=== PATIENT | female | born 1930 | race Caucasian/White ===

== ENCOUNTER → 2016-04-28 | Outpatient (CLI) | payer MEDICARE, BC ==
[2016-04-28 10:07] LABS: APPEARANCE,URINE SLIGHTLY-CLOUDY; BILIRUBIN,URINE NEGATIVE (NEGATIVE); GLUCOSE, URINE NEGATIVE (NEGATIVE); KETONES,URINE NEGATIVE (NEGATIVE); LEUKOCYTE ESTERASE,URINE LARGE (NEGATIVE); NITRITE,URINE NEGATIVE (NEGATIVE); PROTEIN,URINE NEGATIVE (NEGATIVE); URINE SPECIFIC GRAVITY 1.012; UROBILINOGEN,URINE NEGATIVE mg/dL (<2.0)
[2016-04-28 10:15] LABS: ABSOLUTE BASOPHILS # (AUTO) 0.1 10^3/uL (0.0-0.2); ABSOLUTE EOSINOPHILS # (AUTO) 0.3 10^3/uL (0.0-0.6); ABSOLUTE LYMPHOCYTES (AUTO) 1.7 10^3/uL (0.5-4.7); ABSOLUTE MONOCYTES (AUTO) 0.5 10^3/uL (0.1-1.4); ABSOLUTE NEUT (AUTO) 2.4 10^3/uL (1.7-8.2); BASOPHILS % (AUTO) 1.3 % (0-2); EOSINOPHILS % (AUTO) 5.2 % (0-6); HEMATOCRIT 39.3 % (36.0-47.0); HEMOGLOBIN 13.1 g/dL (12.0-15.5); LYMPHOCYTES % (AUTO) 33.7 % (13-45); MEAN CORPUSCULAR HGB CONC 33.3 g/dL (32.0-36.0); MEAN CORPUSCULAR VOLUME 87 fl (80-97); MONOCYTES % (AUTO) 10.4 % (3-13); RED CELL DISTRIBUTION WIDTH 13.8 % (11.5-14.0); SEGMENTED NEUTROPHILS % (AUTO) 49.4 % (42-78); WHITE BLOOD COUNT 4.9 10^3/uL (4.0-10.5)
[2016-04-28 10:40] LABS: ALANINE AMINOTRANSFERASE 30 U/L (9-52); ALKALINE PHOSPHATASE 65 U/L (38-126); ANION GAP 11 (5-19); ASPARTATE AMINO TRANSFERASE 26 U/L (14-36); BILIRUBIN,DIRECT 0.3 mg/dL (0.0-0.4); BILIRUBIN,TOTAL 1.1 mg/dL (0.2-1.3); BLOOD UREA NITROGEN 15 mg/dL (7-20); CARBON DIOXIDE 31 mmol/L (22-30); CHLORIDE 103 mmol/L (98-107); CHOLESTEROL 168.23 mg/dL (0-200); CREATININE RESULT 0.64 mg/dL (0.52-1.25); Direct HDL 57 mg/dL (>40); GLUCOSE 87 mg/dL (75-110); POTASSIUM 4.2 mmol/L (3.6-5.0); SODIUM 144.8 mmol/L (137-145); TOTAL PROTEIN 7.6 g/dL (6.3-8.2); TRIGLYCERIDES 134 mg/dL (<150); URIC ACID 3.9 mg/dL (2.5-7.5)
[2016-04-28 10:51] LABS: DIRECT LDL 78 mg/dL (<100)
[2016-04-28 11:06] LABS: THYROID STIMULATING HORMONE 1.35 uIU/mL (0.47-4.68)
== END ==
LOC: OD 09:11
PROVIDERS: ATTEND Internal Medicine
DX: I10 Essential (primary) hypertension (principal)
CPT/HCPCS: 36415; 80053; 80061; 81001; 84439; 84443; 84550; 85025

== ENCOUNTER → 2017-03-09 | Outpatient (CLI) | payer MEDICARE, BC ==
[~2017-03-09] MED LIST: DIAZEPAM 5 MG TABLET ONE
--- NOTE | 2017-03-09 12:47 | RADIOLOGY REPORT (SQ) ---
EXAM DESCRIPTION: MRI LUMBAR SPINE WITHOUT COMPLETED DATE/TIME: 03/09/2017 12:28 pm REASON FOR STUDY: RADICULOPATHY, LUMBAR REGION M54.16 RADICULOPATHY, LUMBAR REGION M46.1 SACROILII TIS, NOT ELSEWHERE CLASSIFIED COMPARISON: None. TECHNIQUE: Sagittal and Axial imaging includes T1, T2, STIR and gradient echo sequences. Coronal T2/ HASTE imaging. LIMITATIONS: Motion. FINDINGS: VISUALIZED UPPER ABDOMEN: Limited evaluation. No acute or suspicious findings suggested. SEGMENTATION: No transitional anatomy. The lowest well-developed disc space is labeled L5-S1. ALIGNMENT: Marked convex left scoliosis. Grade 1 spondylolisthesis L3-4 and L4-5. VERTEBRAE: Intact. BONE MARROW: Reactive edema L3-4 endplates. DISC SIGNAL: Desiccation multiple levels. POSTERIOR ELEMENTS: Intact. HARDWARE: None in the spine. CORD AND CONUS: Normal in size and signal intensity. Conus at the appropriate level. SOFT TISSUES: No aortic aneurysm seen. No bulky retroperitoneal adenopathy or mass. No paraspinal mas s or fluid. L1-L2: Mild spinal stenosis due to disc osteophyte complex. Right lateral recess stenosis. Moderate neural foraminal narrowing bilaterally. L2-L3: Moderate spinal stenosis due to disc osteophyte complex and facet arthropathy. Lateral recess stenosis. Moderate neural foraminal narrowing bilaterally. L3-L4: Severe spinal stenosis. Lateral recess stenosis. Moderate left and severe right neural melecio inal narrowing. L4-L5: Moderate spinal stenosis. Lateral recess stenosis. Moderate neural foraminal narrowing bilat erally. L5-S1: Disc bulge and facet arthropathy. No significant spinal stenosis. Moderate left and mild rig ht neural foraminal narrowing. LOWER THORACIC: Incompletely imaged. No stenosis seen. SACRUM: Visualized upper sacrum intact. OTHER: No other significant findings. IMPRESSION: Spondylosis, facet arthropathy and malalignment. Spinal stenosis at multiple levels, mo st severe at L3-4. TECHNICAL DOCUMENTATION: JOB ID: [id number] [employer]- All Rights Reserved
--- NOTE | 2017-03-09 13:12 | RADIOLOGY REPORT (SQ) ---
EXAM DESCRIPTION: MRI PELVIS WITHOUT COMPLETED DATE/TIME: 03/09/2017 12:28 pm REASON FOR STUDY: SACROILIITIS M54.16 RADICULOPATHY, LUMBAR REGION M46.1 SACROILIITIS, NOT ELSEWHE RE CLASSIFIED COMPARISON: None. TECHNIQUE: T1, inversion recovery weighted sequences through the sacrum and coccyx without intraveno us contrast. Images saved to PACs. FINDINGS: There is no evidence of insufficiency fracture. No inflammatory changes in the SI joints. No presacral mass. See separate report for findings in the lumbar spine. IMPRESSION: No acute findings. TECHNICAL DOCUMENTATION: JOB ID: [id number] [email or web address]- All Rights Reserved
== END ==
LOC: RAD 03-03 10:53
PROVIDERS: ATTEND Internal Medicine
DX: M54.16 Radiculopathy, lumbar region (principal); M46.1 Sacroiliitis, not elsewhere classified
CPT/HCPCS: 72148; 72195; A9270

== ENCOUNTER → 2017-04-16 | Outpatient (CLI) | payer MEDICARE, BC ==
--- NOTE | 2017-04-16 10:49 | WOMENS IMAGING REPORT ---
EXAM DESCRIPTION: BONE DENSITY HIP/SPINE COMPLETED DATE/TIME: 04/16/2017 10:33 am REASON FOR STUDY: DISORDER OF BONE; M89.9 M81.0 AGE-RELATED OSTEOPOROSIS W/O CURRENT PATHOLOGICAL F RAC M89.9 DISORDER OF BONE, UNSPECIFIED COMPARISON: None. TECHNIQUE: Dual-Energy X-ray Absorptiometry (DEXA) of the AP Spine and Hip. LIMITATIONS: None. FINDINGS: LUMBAR SPINE: The bone mineral density (BMD) measured from L1-L4 in the AP projection correlates with a T-score of -0.9, which is normal as defined by the World Health Organization. HIP: The bone mineral density (BMD) measured in the left hip correlates with a T-score of -0.8, which is n ormal as defined by the World Health Organization. IMPRESSION: 1. LUMBAR SPINE: NORMAL. 2. HIP: NORMAL. COMMENT: The World Health Organization defines low BMD as follows: T-score: Normal: Greater than -1.0 Osteopenia: Between -1.0 and -2.5 Osteoporosis: Less than -2.5 without fractures Established osteoporosis: Less than -2.5 with fractures In general, you may wish to consider: Diagnosis Treatment Follow-up DEXA Normal BMD Prevention 2-3 years Osteopenia Prevention/Therapy 1-2 years Osteoporosis Therapy Yearly TECHNICAL DOCUMENTATION: JOB ID: [id number] 1910[employer]- All Rights Reserved Reading location - IP/workstation name: [facility][email or web address]
--- NOTE | 2017-04-16 13:00 | RADIOLOGY REPORT (SQ) ---
EXAM DESCRIPTION: L SPINE W/FLEX/EXT COMPLETED DATE/TIME: 04/16/2017 11:47 am REASON FOR STUDY: M47.26 OTHER SPONDYLOSIS WITH RADICULOPATHY, LUMBAR REGION M81.0 AGE-RELATED OSTE OPOROSIS W/O CURRENT PATHOLOGICAL FRAC M89.9 DISORDER OF BONE, UNSPECIFIED M47.26 OTHER SPONDYLOSIS WITH RADICULOPATHY, LUMBAR REGION COMPARISON: None. NUMBER OF VIEWS: Seven views. TECHNIQUE: AP, lateral, obliques, flexion, extension, and sacral radiographic images acquired. LIMITATIONS: None. FINDINGS: MINERALIZATION: Normal. SEGMENTATION: Normal. No transitional anatomy. ALIGNMENT: Scoliosis, convex to the left. Grade 1 anterolisthesis of L 3 on L4 and L 4 on L5. FLEXION/EXTENSION: No instability. VERTEBRAE: Maintained height. No fracture or worrisome bone lesion. DISCS: Multilevel disc space narrowing with osteophytes. POSTERIOR ELEMENTS: Pedicles and facets are intact. Facet arthropathy in the lower lumbar spine. No pars defect or posterior arch defects. HARDWARE: None in the spine. PARASPINAL SOFT TISSUES: Normal. PELVIS: Intact as visualized. No fractures or worrisome bone lesions. SI joints intact. OTHER: No other significant finding. IMPRESSION: MULTILEVEL CHRONIC DEGENERATIVE CHANGES. SCOLIOSIS. GRADE 1 ANTEROLISTHESIS OF L 3 ON L4 AND L4 ON L5. NO INSTABILITY ON FLEXION/EXTENSION. TECHNICAL DOCUMENTATION: JOB ID: [id number]- All Rights Reserved Reading location - IP/workstation name: [email or web address]
== END ==
LOC: WI 10:22
PROVIDERS: ATTEND Neurological Surgery
DX: M47.26 Other spondylosis with radiculopathy, lumbar region (principal); M89.9 Disorder of bone, unspecified
CPT/HCPCS: 72114; 77080

== ENCOUNTER → 2017-06-01 | Outpatient (CLI) | payer MEDICARE, BC ==
--- NOTE | 2017-06-01 12:35 | RADIOLOGY REPORT (SQ) ---
EXAM DESCRIPTION: HIP LEFT AP/LATERAL COMPLETED DATE/TIME: 06/01/2017 11:26 am REASON FOR STUDY: M25.552 PAIN IN LEFT HIP M25.552 PAIN IN LEFT HIP COMPARISON: None. NUMBER OF VIEWS: Two views. TECHNIQUE: AP pelvis and additional frog-leg view of the left hip. LIMITATIONS: None. FINDINGS: There is joint space narrowing with near bone on bone contact in the left hip. Remodeling of the femoral head. No evidence of AVN. SI joints are normal. Lower lumbar scoliosis and spondyl osis. IMPRESSION: Advanced osteoarthritis. TECHNICAL DOCUMENTATION: JOB ID: [id number] [employer]- All Rights Reserved Reading location - IP/workstation name: [email or web address]
== END ==
LOC: RAD 10:50
PROVIDERS: ATTEND Physician Assistant
DX: M25.552 Pain in left hip (principal); M16.12 Unilateral primary osteoarthritis, left hip

== ENCOUNTER → 2017-06-17 | Outpatient (CLI) | payer MEDICARE, BC ==
--- NOTE | 2017-06-17 16:07 | RADIOLOGY REPORT (SQ) ---
EXAM DESCRIPTION: SACROILIAC JOINTS 3 OR MORE COMPLETED DATE/TIME: 06/17/2017 3:54 pm REASON FOR STUDY: M53.3 SACROCOCCYGEAL DISORDERS, NOT ELSEWHERE CLASSIFIED M53.3 SACROCOCCYGEAL DIS ORDERS, NOT ELSEWHERE CLASSIFIED COMPARISON: None. NUMBER OF VIEWS: Three views. TECHNIQUE: AP and oblique views of the sacroiliac joints. LIMITATIONS: None. FINDINGS: MINERALIZATION: Osteopenia. BONES: No acute fracture or dislocation. No worrisome bone lesions. Lower lumbar spondylosis and fac et arthropathy. JOINTS: Mild sclerosis left SI joint. No erosions. SOFT TISSUES: No soft tissue swelling. No radio-opaque foreign body. OTHER: No other significant finding. IMPRESSION: Mild left SI joint arthropathy. TECHNICAL DOCUMENTATION: JOB ID: [id number]- All Rights Reserved Reading location - IP/workstation name: [facility]-RR
== END ==
LOC: RAD 15:28
PROVIDERS: ATTEND Pain Medicine Pain Medicine
DX: M53.3 Sacrococcygeal disorders, not elsewhere classified (principal)
CPT/HCPCS: 72202

== ENCOUNTER → 2018-01-08 | Outpatient (CLI) | payer MEDICARE, BC ==
--- NOTE | 2018-01-08 09:54 | RADIOLOGY REPORT (SQ) ---
EXAM DESCRIPTION: CHEST PA/LATERAL COMPLETED DATE/TIME: 01/08/2018 9:45 am REASON FOR STUDY: PRE-OP COMPARISON: None. EXAM PARAMETERS: NUMBER OF VIEWS: two views TECHNIQUE: Digital Frontal and Lateral radiographic views of the chest acquired. RADIATION DOSE: NA LIMITATIONS: none FINDINGS: LUNGS AND PLEURA: Interstitial markings are prominent bilaterally most marked in the lung bases. This most likely represents chronic interstitial lung disease. No focal consolidations or ef fusions. No pneumothorax. MEDIASTINUM AND HILAR STRUCTURES: No masses or contour abnormalities. HEART AND VASCULAR STRUCTURES: Heart normal size. No evidence for failure. BONES: No acute findings. HARDWARE: None in the chest. OTHER: No other significant finding. IMPRESSION: Probable mild chronic interstitial lung disease. No acute findings. TECHNICAL DOCUMENTATION: JOB ID: [id number] [employer]- All Rights Reserved Reading location - IP/workstation name: [email or web address]
[2018-01-08 09:59] LABS: APPEARANCE,URINE SLIGHTLY-CLOUDY; BILIRUBIN,URINE NEGATIVE (NEGATIVE); COLOR,URINE YELLOW; GLUCOSE, URINE NEGATIVE (NEGATIVE); KETONES,URINE NEGATIVE (NEGATIVE); LEUKOCYTE ESTERASE,URINE NEGATIVE (NEGATIVE); NITRITE,URINE NEGATIVE (NEGATIVE); PROTEIN,URINE NEGATIVE (NEGATIVE); URINE SPECIFIC GRAVITY 1.015; UROBILINOGEN,URINE NEGATIVE mg/dL (<2.0)
[2018-01-08 10:05] LABS: ABSOLUTE EOSINOPHILS # (AUTO) 0.3 10^3/uL (0.0-0.6); ABSOLUTE LYMPHOCYTES (AUTO) 1.6 10^3/uL (0.5-4.7); ABSOLUTE MONOCYTES (AUTO) 0.4 10^3/uL (0.1-1.4); ABSOLUTE NEUT (AUTO) 2.1 10^3/uL (1.7-8.2); BASOPHILS % (AUTO) 0.8 % (0-2); EOSINOPHILS % (AUTO) 5.8 % (0-6); HEMATOCRIT 37.4 % (36.0-47.0); HEMOGLOBIN 12.5 g/dL (12.0-15.5); MEAN CORPUSCULAR HEMOGLOBIN 29.2 pg (27.0-33.4); MEAN CORPUSCULAR HGB CONC 33.4 g/dL (32.0-36.0); MEAN CORPUSCULAR VOLUME 87 fl (80-97); MONOCYTES % (AUTO) 9.8 % (3-13); PLATELET COUNT 250 10^3/uL (150-450); RED BLOOD COUNT 4.29 10^6/uL (3.72-5.28); RED CELL DISTRIBUTION WIDTH 14.3 % (11.5-14.0); SEGMENTED NEUTROPHILS % (AUTO) 47.6 % (42-78); TOTAL CELLS COUNTED % (AUTO) 100 %; WHITE BLOOD COUNT 4.5 10^3/uL (4.0-10.5)
[2018-01-08 10:56] LABS: ANION GAP 8 (5-19); BLOOD UREA NITROGEN 19 mg/dL (7-20); CALCIUM 9.4 mg/dL (8.4-10.2); CARBON DIOXIDE 31 mmol/L (22-30); CHLORIDE 103 mmol/L (98-107); GLUCOSE 84 mg/dL (75-110); SODIUM 141.8 mmol/L (137-145)
--- NOTE | 2018-01-08 13:27 | EKG REPORT ---
SEVERITY:- NORMAL ECG - SINUS RHYTHM : Confirmed by: Hemant Jose MD 08-Jan-2018 13:26:36
== END ==
LOC: OD 09:00
PROVIDERS: ATTEND Orthopaedic Surgery
DX: Z01.810 Encounter for preprocedural cardiovascular examination (principal); Z01.812 Encounter for preprocedural laboratory examination; Z01.818 Encounter for other preprocedural examination
CPT/HCPCS: 36415; 71046; 80048; 81001; 85025; 93005; 93010

== ENCOUNTER → 2018-01-26 | Outpatient (CLI) | payer MEDICARE, BC ==
--- NOTE | 2018-01-26 09:40 | XCELERA REPORT ---
[address] [address] Transthoracic Echocardiogram Report Name: GILBERT TEIXEIRA Age: 88 yrs Gender: Female : 1930 Patient Status: Preadmit Patient Location: Study Date: 01/26/2018 08:16 AM History: Jazmyne, Pre-op hip Height: 66 in Weight: 133 lb BSA: 1.7 m2 Procedure: A two-dimensional transthoracic echocardiogram with color flow and Doppler was performed. Study Quality: Good. Reason For Study: MURMUR Ordering Physician: MELVI BARKER Performed By: Juliet Garcia Interpretation Summary Preserved LV systolic function. LVEF is estimated at 60-65%. Mild calcific valvular aortic stenosis( AoV=1.45 cm2, AoV=2.38 m/s, Mean gradient=12 mm Hg). Left ventricular systolic function is normal. LV EF is 60-65% The right ventricle is normal in size and function. There is a mild amount of mitral regurgitation There is mild aortic stenosis There is a mild to moderate amount of aortic regurgitation Right ventricular systolic pressure is normal. There is no pericardial effusion. MMode/2D Measurements & Calculations RVDd: 3.4 cm LVIDd: 4.7 cm FS: 44.3 % Ao root diam: 2.7 cm IVSd: 0.88 cm LVIDs: 2.6 cm EDV(Teich): 101.4 ml Ao root area: 5.8 cm2 LVPWd: 0.85 cm ESV(Teich): 24.8 ml LA dimension: 3.3 cm EF(Teich): 75.5 % LVOT diam: 2.0 cm LVOT area: 3.0 cm2 Doppler Measurements & Calculations MV E max hugo: MV P1/2t max hugo: Ao V2 max: AI max hugo: 62.1 cm/sec 62.5 cm/sec 236.1 cm/sec 505.9 cm/sec MV A max hugo: MV P1/2t: 85.6 msec Ao max PG: AI max P.3 cm/sec MVA(P1/2t): 2.6 cm2 22.3 mmHg 102.4 mmHg MV E/A: 0.67 MV dec slope: Ao V2 mean: AI dec slope: 162.1 cm/sec 341.9 cm/sec2 213.6 cm/sec2 Ao mean PG: AI P1/2t: MV dec time: 12.3 mmHg 433.4 msec 0.27 sec Ao V2 VTI: 49.7 cm BASILIO(I,D): 1.4 cm2 BASILIO(V,D): 1.2 cm2 LV V1 max PG: SV(LVOT): 69.8 ml PA V2 max: PI end-d hugo: 3.3 mmHg 70.6 cm/sec 127.6 cm/sec LV V1 mean PG: PA max P.8 mmHg 2.0 mmHg LV V1 max: 91.0 cm/sec LV V1 mean: 63.3 cm/sec LV V1 VTI: 23.0 cm TR max hugo: AV P1/2t-pr_phl: MV P1/2t-pr_phl: 241.6 cm/sec 433.5 msec 85.6 msec TR max P.4 mmHg Left Ventricle The left ventricle is grossly normal size. There is mild to moderate concentric left ventricular hypertrophy. Left ventricular systolic function is normal. LV EF is 60-65%. Doppler measurements suggest impaired left ventricular relaxation, which is associated with grade I/IV or mild diastolic dysfunction. The left ventricular wall motion is normal. Right Ventricle The right ventricle is normal in size and function. Atria The right atrium is normal. The left atrium is mildly dilated. Mitral Valve There is mild mitral annular calcification. There is no evidence of mitral valve prolapse. There is no mitral valve stenosis. There is a mild amount of mitral regurgitation. Aortic Valve The aortic valve is moderately calcified. There is mild aortic stenosis. Mean gradient of 12 mm Hg. There is a mild to moderate amount of aortic regurgitation. Tricuspid Valve The tricuspid valve is normal in structure and function. There is a mild amount of tricuspid regurgitation. Right ventricular systolic pressure is normal. Pulmonic Valve The pulmonic valve is not well seen, but is grossly normal. There is a mild amount of pulmonic regurgitation. Great Vessels The aortic root is normal size. The inferior vena cava appeared normal. Effusions There is no pericardial effusion. : MELVI BARKER > Melvi Barker
== END ==
LOC: SP 07:42
PROVIDERS: ATTEND Internal Medicine
DX: R01.1 Cardiac murmur, unspecified (principal); Z01.818 Encounter for other preprocedural examination
CPT/HCPCS: 93306

== ENCOUNTER 2018-01-27 05:09 | Inpatient (IN) | payer MEDICARE, BC ==
[~2018-01-27 05:09] MED LIST changes: +BUPIVACAINE INJ/PF LIPOSOME/PF 266 MG/20 ML SDV IJ PRN; +CEFAZOLIN INJ 1 GM VIAL IV PRN; -DIAZEPAM 5 MG TABLET ONE; +IBUPROFEN 800 MG/NS 250 ML IV PRN; +LACTATED RINGERS 1000 ML IV PRN; +LANSOPRAZOLE 15 MG TAB.RAP.DR PO PRN; +LIDOCAINE 0.5% INJ-PF (5 MG/ML) 50 ML SDV SUBCUT PRN; +OXYCODONE HCL SR 10 MG TABLET PO PRN; +VANCOMYCIN HCL 1,000 MG in DEXTROSE 5%-WATER 250 ML IV PRN
[2018-01-27] MEDS ORDERED: LANSOPRAZOLE 15 MG TAB.RAP.DR ONE (05:12)
[2018-01-27] MEDS ORDERED: OXYCODONE HCL SR 10 MG TABLET PO ONE (05:12)
[2018-01-27] MEDS ORDERED: CEFAZOLIN INJ 1 GM VIAL ONE (05:12)
[2018-01-27] MEDS ORDERED: MIDAZOLAM 2 MG/2 ML INJ ONE (06:36)
[2018-01-27] MEDS ORDERED: EPHEDRINE SULFATE INJ 50 MG/1 ML AMPULE ONE (06:36)
[2018-01-27] MEDS ORDERED: PROPOFOL INJ 200 MG/20 ML VIAL IV ONE (06:36)
[2018-01-27] MEDS ORDERED: FENTANYL CITRATE INJ/PF 100 MCG/2 ML AMPUL ONE (06:36)
[2018-01-27] MEDS ORDERED: TRANEXAMIC ACID INJ/PF 1,000 MG/10 ML SDV IV ONE ×3 (06:37→10:00)
[2018-01-27] MEDS ORDERED: BUPIVACAINE HCL/DEX-WATER/PF 15 MG/2 ML AMPULE ONE (06:39)
[2018-01-27] MEDS ORDERED: THROMBIN (BOVINE) TOPICAL 20000 UNIT VIAL ONE (06:49)
[2018-01-27] MEDS ORDERED: BUPIVACAINE HCL 0.25% /EPINEPHRINE INJ/PF 30 ML SDV ONE (06:50)
[2018-01-27] MEDS ORDERED: FENTANYL CITRATE INJ/PF 100 MCG/2 ML AMPUL IV PRN ×2 (08:21)
[2018-01-27] MEDS ORDERED: DIPHENHYDRAMINE HCL 50 MG/ML VIAL IV PRN ×2 (08:21→08:28)
[2018-01-27] MEDS ORDERED: PROMETHAZINE HCL INJ 25 MG/1 ML VIAL IV PRN (08:21)
[2018-01-27] MEDS ORDERED: MORPHINE SULFATE 10 MG/ML INJ IV PRN ×4 (08:21→08:28)
[2018-01-27] MEDS ORDERED: ONDANSETRON HCL INJ/PF 4 MG/2 ML SDV IV PRN (08:28)
[2018-01-27] MEDS ORDERED: RINGERS SOLUTION,LACTATED 1,000 ML IV PRN (08:28)
[2018-01-27] MEDS ORDERED: ONDANSETRON 4 MG TAB.RAPDIS PO PRN (08:28)
[2018-01-27] MEDS ORDERED: MAG HYDROX/AL HYDROX/SIMETH SUSP 30 ML UDCUP PO PRN (08:28)
[2018-01-27] MEDS ORDERED: ACETAMINOPHEN 325 MG TABLET PO PRN (08:28)
--- NOTE | 2018-01-27 08:33 | Operative Report ---
Operative Report DATE OF SURGERY: 01/27/18 PREOPERATIVE DIAGNOSIS: Left hip arthritis OPERATION: Left hip arthroplasty SURGEON: ALBERTO MALIK ANESTHESIA: Spinal TISSUE REMOVED OR ALTERED: Femoral head to pathology ESTIMATED BLOOD LOSS: 100 PROCEDURE: Implants used: Femur: [place] Accolade 2 stem, size 4 Acetabular shell: 56 mm hemispherical shell Liner: 36 mm flat cross-link polyethylene liner Head: 36 mm chrome cobalt head +5 neck extension The patient is placed in a right lateral decubitus position on the operating table. The left lower extremity and hindquarter is prepped and draped in a sterile fashion. A curvilinear incision was made over the greater trochanter a posterior approach the hip was taken. The femoral head is dislocated and the femoral neck transected using an oscillating saw. Attention was next turned to the acetabulum. Soft tissues cleared off the acetabulum using electrocautery. The acetabulum was then prepared using a series of hemispherical reamers until a 56 millimeters reamer is seated. Subsequently a the 6 millimeters [place] titanium hemispherical shell is impacted into position and secured with one screw. A standard flat 36 millimeters cross-link liner is impacted into the shell. Attention was next turned to the femur. Access is gained to the femoral canal using a box osteotome to the piriformis fossa. The femur is then prepared using a series of broaches until a number 4 broach is seated. A trial reduction was now performed using a 36 millimeters head with +5 neck. Preoperative leg length was recreated and is excellent anterior posterior stability. A decision was made to proceed with the above construct. All trial implants were removed. The wound is irrigated with pulsed lavage. A number 4 stem is impacted into the femoral canal. A trial reduction was again performed with a 36 mm head and a +5 neck. Findings as previously. The hip was dislocated one last time and the final chrome-cobalt head is impacted onto the trunnion. The hip was reduced. Wound is copiously irrigated with pulsed lavage. Sent closed in layers using interrupted Vicryl followed by francisco. A sterile dressing is applied and the patient's returned to recovery room in satisfactory patient.
--- NOTE | 2018-01-27 09:54 | RADIOLOGY REPORT (SQ) ---
EXAM DESCRIPTION: PELVIS AP COMPLETED DATE/TIME: 01/27/2018 9:15 am REASON FOR STUDY: Post Op Long Cassette in PACU M16.12 UNILATERAL PRIMARY OSTEOARTHRITIS, LEFT HIP COMPARISON: None. NUMBER OF VIEWS: One view TECHNIQUE: AP Pelvis LIMITATIONS: None. FINDINGS: MINERALIZATION: Normal. HIPS: Postsurgical changes from the total left hip arthroplasty with screw fixated acetabular compone nt. Alignment is near anatomic. No evidence of complication or fracture. PELVIS AND SACRUM: No acute fracture or dislocation. No worrisome bone lesions. PUBIS AND ISCHIUM: No acute fracture. LOWER LUMBAR SPINE: Lower lumbar degenerative change and facet arthropathy. SOFT TISSUES: Subcutaneous gas and skin francisco overlie left hip. OTHER: No other significant finding. IMPRESSION: Expected postprocedural changes from the left total hip arthroplasty without evidence of complication. TECHNICAL DOCUMENTATION: JOB ID: [id number] [employer]- All Rights Reserved Reading location - IP/workstation name: [email or web address]
[2018-01-27] MEDS ORDERED: ASPIRIN 81 MG TABLET, CHEWABLE PO SCH (10:00)
[2018-01-27] MEDS ORDERED: (PENDING PHARMACY ID) (Vortioxetine Hydrobromide [Trintellix] 10 MG) PO SCH (10:00)
[2018-01-27] MEDS: OXYCODONE HCL IR 5 MG TABLET PO PRN ×2 (13:00→20:09)
[2018-01-27] MEDS: OXYCODONE HCL SR 10 MG TABLET PO SCH ×2 (13:07→21:27)
[2018-01-27] MEDS: ASPIRIN 81 MG TABLET, ENT COATED PO SCH (13:07)
[2018-01-27] MEDS: PRENATAL VITAMIN W DHA CAPSULE PO SCH (13:08)
[2018-01-27] MEDS: SENNOSIDES/DOCUSATE 8.6-50 MG 1 EACH TABLET PO SCH ×2 (13:08→18:52)
[2018-01-27] MEDS ORDERED: LIDOCAINE 2% INJ-PF (20 MG/ML) 2 ML AMPUL ONE (13:10)
[2018-01-27] MEDS ORDERED: PHENYLEPHRINE HCL INJ/PF 10 MG/1 ML SDV ONE (13:10)
[2018-01-27] MEDS: MORPHINE SULFATE 10 MG/ML INJ IV PRN ×3 (13:59→21:28)
[2018-01-27] MEDS: LISINOPRIL 10 MG TABLET PO SCH (15:53)
[2018-01-27] MEDS: IBUPROFEN 800 MG in NORMAL SALINE 250 ML IV SCH ×2 (15:54→21:27)
[2018-01-27] MEDS ORDERED: VANCOMYCIN HCL 1,000 MG in DEXTROSE 5%-WATER 250 ML IV ONE (20:28)
[2018-01-27] MEDS ORDERED: (PENDING PHARMACY ID) (Simvastatin [Simvastatin] 20 MG) PO SCH (22:00)
[2018-01-27] MEDS ORDERED: ZOLPIDEM TARTRATE 5 MG TABLET PO SCH (22:00)
[2018-01-27] MEDS ORDERED: SIMVASTATIN 10 MG TABLET PO SCH (22:00)
[2018-01-28] MEDS: IBUPROFEN 800 MG in NORMAL SALINE 250 ML IV SCH ×2 (05:09→14:44)
[2018-01-28] MEDS ORDERED: LANSOPRAZOLE 30 MG TAB.RAP.DR PO SCH (06:00)
[2018-01-28 06:23] LABS: HEMATOCRIT 30.9 % (36.0-47.0); HEMOGLOBIN 10.5 g/dL (12.0-15.5); MEAN CORPUSCULAR HEMOGLOBIN 29.8 pg (27.0-33.4); MEAN CORPUSCULAR HGB CONC 33.9 g/dL (32.0-36.0); MEAN CORPUSCULAR VOLUME 88 fl (80-97); PLATELET COUNT 172 10^3/uL (150-450); RED BLOOD COUNT 3.52 10^6/uL (3.72-5.28); WHITE BLOOD COUNT 9.7 10^3/uL (4.0-10.5)
[2018-01-28 06:49] LABS: ANION GAP 7 (5-19); BLOOD UREA NITROGEN 17 mg/dL (7-20); CALCIUM 8.6 mg/dL (8.4-10.2); CARBON DIOXIDE 26 mmol/L (22-30); CHLORIDE 103 mmol/L (98-107); GLUCOSE 108 mg/dL (75-110); POTASSIUM 4.1 mmol/L (3.6-5.0); SODIUM 136.3 mmol/L (137-145)
--- NOTE | 2018-01-28 07:12 | PDOC DISCHARGE SUMMARY ---
General - Admit/Disc Date/PCP Admission Date/Primary Care Provider: 01/27/18 05:09 PALLAVI DUCKWORTH MD Discharge Date: 01/28/18 - Additional Information Resuscitation Status: Full Code Home Medications: Aspirin [Aspirin 81 mg Chewable Tablet] 81 mg PO DAILY 01/21/18 Lisinopril [Prinivil 40 mg Tablet] 40 mg PO DAILY 01/21/18 Multivit-Min/Iron Fum/Folic AC [Itrsc-Qtxybjp-Mmjdonwb Tablet] 1 tab PO DAILY 01/21/18 Simvastatin 20 mg PO QHS 01/21/18 Vortioxetine Hydrobromide [Trintellix] 10 mg PO DAILY 01/21/18 Zolpidem Tartrate [Ambien 5 mg Tablet] 2.5 mg PO DAILY 01/21/18 History of Present Illness History of Present Illness: GILBERT TEIXEIRA is a 88 year old female Patient is an 88-year-old white female with progressive left hip pain and functional disability secondary osteoarthritis. She is admitted for an elective left hip arthroplasty. Hospital Course Hospital Course: Patient is admitted through the operating room where she undergoes uncomplicated left hip arthroplasty. She is seen by physical therapy on the day of surgery. She is ambulating 200 feet. She is having minimal discomfort. Physical Exam Vital Signs: Temp Pulse Resp BP Pulse Ox 37.1 C 105 H 16 127/90 H 98 01/27/18 23:51 01/27/18 23:51 01/27/18 23:51 01/27/18 15:00 01/27/18 23:51 Intake & Output 01/27/18 01/28/18 01/29/18 06:59 06:59 06:59 Intake Total 0 2678 Output Total 150 Balance 0 2528 Weight 68.8 kg General appearance: PRESENT: no acute distress Head exam: PRESENT: normocephalic Respiratory exam: PRESENT: unlabored Cardiovascular exam: PRESENT: RRR Pulses: PRESENT: +1 pedal pulses bilateral Vascular exam: PRESENT: normal capillary refill GI/Abdominal exam: PRESENT: soft Rectal exam: PRESENT: deferred Extremities exam: PRESENT: other - Left hip dressing clean dry and intact. Leg lengths are equal. Distal neurovascular examination is intact. Neurological exam: PRESENT: alert, awake, oriented to person, oriented to place, oriented to time, oriented to situation. ABSENT: motor sensory deficit Psychiatric exam: PRESENT: appropriate affect, normal mood. ABSENT: homicidal ideation, suicidal ideation Skin exam: PRESENT: dry, intact, warm. ABSENT: cyanosis, rash Results Laboratory Results: 01/28/18 05:12 01/28/18 05:12 01/27/18 01/28/18 01/28/18 06:10 05:12 05:12 WBC 9.7 RBC 3.52 L Hgb 10.5 L Hct 30.9 L MCV 88 MCH 29.8 MCHC 33.9 RDW 14.0 Plt Count 172 Sodium 136.3 L Potassium 4.1 Chloride 103 Carbon Dioxide 26 Anion Gap 7 BUN 17 Creatinine 0.64 Est GFR ( Amer) > 60 Est GFR (Non-Af Amer) > 60 Glucose 108 Calcium 8.6 Blood Type A POSITIVE Antibody Screen NEGATIVE Impressions: Pelvis X-Ray 01/27/18 08:29 IMPRESSION: Expected postprocedural changes from the left total hip arthroplasty without evidence of complication. Status: Imported from PACS Qualifiers - * PATIENT BEING DISCHARGED WITH ANY OF THE FOLLOWING DIAGNOSIS: No VTE patient discharged on overlapping Therapy?: Yes Plan Discharge Plan: Patient be discharged home with home health services and DME. Follow-up with Dr. Ferny Cavazos [employer] for surgery in 2 weeks for staple removal. Time Spent: Less than 30 Minutes
[2018-01-28] MEDS: SENNOSIDES/DOCUSATE 8.6-50 MG 1 EACH TABLET PO SCH (09:59)
[2018-01-28] MEDS: PRENATAL VITAMIN W DHA CAPSULE PO SCH (09:59)
[2018-01-28] MEDS: ASPIRIN 81 MG TABLET, ENT COATED PO SCH (09:59)
[2018-01-28] MEDS: LISINOPRIL 10 MG TABLET PO SCH (10:00)
[2018-01-28] MEDS: OXYCODONE HCL SR 10 MG TABLET PO SCH (10:02)
[2018-01-28] MEDS: OXYCODONE HCL IR 5 MG TABLET PO PRN (14:44)
[2018-01-28 16:36] VITALS: BP 108/45
== END 2018-01-28 16:00 | disposition home health service (06) | DRG 470 ==
LOC: INOR 05:09 → UNDOADMIN 06:56 → INOR 06:56 → 4W 10:05
PROVIDERS: ADMIT Orthopaedic Surgery; ATTEND Orthopaedic Surgery
PROC: 0SRB02Z Replacement of Left Hip Joint with Metal on Polyethylene Synthetic Substitute, Open Approach (ICD-10-PCS; principal; 2018-01-27 07:30)
DX: M16.12 Unilateral primary osteoarthritis, left hip (principal); M51.36 Other intervertebral disc degeneration, lumbar region; Z79.82 Long term (current) use of aspirin
CPT/HCPCS: 01214; 36415; 72170; 80048; 85027; 86850; 86900; 86901; 88304; 88311; 93306; 94799; C1776; G8978-GP; G8979-GP; G8987-GO; G8988-GO; J0690; J1741; J2250; J2270; J2370; J2704; J3010; J3370; J3490; J7050; J7060

== ENCOUNTER 2018-03-10 13:22 | Inpatient (IN) | payer MEDICARE, BC, OTHER ==
[2018-03-10] MEDS ORDERED: ACETAMINOPHEN 325 MG TABLET PO ONE (14:04)
--- NOTE | 2018-03-10 14:14 | ER Document Report ---
ED General - General Chief Complaint: Breathing Difficulty Stated Complaint: PAIN WHILE WALKING Time Seen by Provider: 03/10/18 13:43 Primary Care Provider: PALLAVI DUCKWORTH MD [Primary Care Provider] - Follow up as needed TRAVEL OUTSIDE OF THE [place] IN LAST 30 DAYS: No - HPI Patient complains to provider of: Fever, generalized weakness, hip pain Onset: This morning Onset/Duration: Gradual Associated symptoms: Body/muscle aches, Fever, Weakness Exacerbated by: Denies Relieved by: Denies Notes: Pt is an 88-year-old female brought by EMS, as a call out to the house was for hip pain and generalized weakness with inability to walk, however EMS notes patient to have a fever and also be hypoxic on arrival, she denies using oxygen at home, patient denies any falls, no nausea or vomiting, no cough, cold or congestion - Related Data Allergies/Adverse Reactions: No Known Allergies Allergy (Verified 03/10/18 14:02) Past Medical History - General Information source: Patient - Social History Smoking Status: Never Smoker Family History: Reviewed & Not Pertinent Patient has suicidal ideation: No Patient has homicidal ideation: No - Past Medical History Cardiac Medical History: Reports: Hx Hypercholesterolemia, Hx Hypertension Denies: Hx Atrial Fibrillation, Hx Congestive Heart Failure, Hx Coronary Artery Disease, Hx Heart Attack - has stent placed, Hx Peripheral Vascular Disease, Hx Heart Murmur Pulmonary Medical History: Denies: Hx Asthma, Hx Bronchitis, Hx COPD, Hx Pneumonia, Hx Sleep Apnea Neurological Medical History: Denies: Hx Cerebrovascular Accident, Hx Seizures Endocrine Medical History: Denies: Hx Hyperthyroidism, Hx Hypothyroidism Renal/ Medical History: Denies: Hx Kidney Stones, Hx Peritoneal Dialysis GI Medical History: Reports: Hx Gastroesophageal Reflux Disease. Denies: Hx Crohn's Disease, Hx Hiatal Hernia, Hx Irritable Bowel, Hx Liver Failure, Hx Pancreatitis, Hx Ulcer Musculoskeletal Medical History: Reports Hx Arthritis, Denies Hx Fibromyalgia, Denies Hx Muscular Dystrophy Psychiatric Medical History: Reports: Hx Depression Denies: Hx Bipolar Disorder, Hx Post Traumatic Stress Disorder, Hx Schizophrenia Traumatic Medical History: Denies: Hx Fractures Past Surgical History: Reports: Hx Section - x2. Denies: Hx Appendectomy, Hx Bowel Surgery, Hx Cholecystectomy, Hx Colostomy, Hx Coronary Artery Bypass Graft, Hx Gastric Bypass Surgery, Hx Herniorrhaphy, Hx Hysterectomy, Hx Mastectomy, Hx Pacemaker, Hx Tonsillectomy, Hx Tubal Ligation Review of Systems - Review of Systems Constitutional: Fever, Weakness EENT: No symptoms reported Cardiovascular: No symptoms reported Respiratory: Short of breath Gastrointestinal: No symptoms reported Genitourinary: No symptoms reported Female Genitourinary: No symptoms reported Musculoskeletal: See HPI Skin: No symptoms reported Hematologic/Lymphatic: No symptoms reported Neurological/Psychological: No symptoms reported -: Yes All other systems reviewed and negative Physical Exam - Vital signs Vitals: Temp Resp BP Pulse Ox 101.3 F H 19 111/54 L 97 03/10/18 13:43 03/10/18 13:43 03/10/18 13:43 03/10/18 13:43 Interpretation: Febrile - General General appearance: Appears well, Alert - HEENT Head: Normocephalic, Atraumatic Eyes: Normal Pupils: PERRL - Respiratory Respiratory status: No respiratory distress Chest status: Nontender Breath sounds: Normal Chest palpation: Normal - Cardiovascular Rhythm: Regular Heart sounds: Normal auscultation Murmur: No - Abdominal Inspection: Normal Distension: No distension Bowel sounds: Normal Tenderness: Nontender Organomegaly: No organomegaly - Back Back: Normal, Nontender - Extremities General upper extremity: Normal inspection, Nontender, Normal color, Normal ROM, Normal temperature General lower extremity: Normal inspection, Nontender, Normal color, Normal ROM, Normal temperature, Normal weight bearing. No: Ilir's sign - Neurological Neuro grossly intact: Yes Cognition: Normal Orientation: AAOx4 Evans Coma Scale Eye Opening: Spontaneous Manuel Coma Scale Verbal: Oriented [place] Coma Scale Motor: Obeys Commands Manuel Coma Scale Total: 15 Speech: Normal Motor strength normal: LUE, RUE, LLE, RLE Sensory: Normal - Psychological Associated symptoms: Normal affect, Normal mood - Skin Skin Temperature: Warm Skin Moisture: Dry Skin Color: Normal Course - Re-evaluation Re-evalutation: 03/10/18 16:24 Patient discussed with primary care provider, Dr. Duckworth who agrees to admit for further evaluation and treatment, this plan was discussed with the patient at bedside who is in agreement as well - Vital Signs Vital signs: Temp Pulse Resp BP Pulse Ox 101.3 F H 21 H 106/55 L 97 03/10/18 13:54 03/10/18 14:01 03/10/18 14:01 03/10/18 14:01 - Laboratory Result Diagrams: 03/10/18 13:35 03/10/18 13:35 Laboratory results interpreted by me: 03/10/18 03/10/18 03/10/18 13:35 13:35 13:35 RBC 3.37 L Hgb 9.6 L Hct 28.2 L RDW 14.4 H Seg Neutrophils % 84.1 H Lymphocytes % 7.6 L APTT 36.2 H Sodium 136.3 L Potassium 2.9 L* Chloride 96 L BUN 21 H Glucose 112 H Calcium 8.1 L NT-Pro-B Natriuret Pep Albumin 3.3 L Urine Protein Urine Ketones Urine Blood Urine Urobilinogen 03/10/18 03/10/18 13:35 14:00 RBC Hgb Hct RDW Seg Neutrophils % Lymphocytes % APTT Sodium Potassium Chloride BUN Glucose Calcium NT-Pro-B Natriuret Pep 5450 H Albumin Urine Protein 30 H Urine Ketones TRACE H Urine Blood SMALL H Urine Urobilinogen 4.0 H - Diagnostic Test Radiology reviewed: Image reviewed, Reports reviewed - EKG Interpretation by Me EKG shows normal: Sinus rhythm Rate: Normal Rhythm: NSR Discharge - Discharge Clinical Impression: Pneumonia Qualifiers: Pneumonia type: due to unspecified organism Laterality: unspecified laterality Lung location: unspecified part of lung Qualified Code(s): J18.9 - Pneumonia, unspecified organism CHF (congestive heart failure) Qualifiers: Heart failure type: unspecified Heart failure chronicity: unspecified Qualified Code(s): I50.9 - Heart failure, unspecified Condition: Stable Disposition: ADMITTED INPATIENT Admitting Provider: [facility] Admitted: Telemetry Referrals: PALLAVI DUCKWORTH MD [Primary Care Provider] - Follow up as needed
[2018-03-10 14:16] LABS: ABSOLUTE BASOPHILS # (AUTO) 0.1 10^3/uL (0.0-0.2); ABSOLUTE LYMPHOCYTES (AUTO) 0.7 10^3/uL (0.5-4.7); ABSOLUTE MONOCYTES (AUTO) 0.7 10^3/uL (0.1-1.4); ABSOLUTE NEUT (AUTO) 8.2 10^3/uL (1.7-8.2); BASOPHILS % (AUTO) 0.5 % (0-2); EOSINOPHILS % (AUTO) 0.2 % (0-6); HEMATOCRIT 28.2 % (36.0-47.0); HEMOGLOBIN 9.6 g/dL (12.0-15.5); LYMPHOCYTES % (AUTO) 7.6 % (13-45); MEAN CORPUSCULAR HEMOGLOBIN 28.6 pg (27.0-33.4); MEAN CORPUSCULAR HGB CONC 34.1 g/dL (32.0-36.0); MEAN CORPUSCULAR VOLUME 84 fl (80-97); MONOCYTES % (AUTO) 7.6 % (3-13); PLATELET COUNT 194 10^3/uL (150-450); RED BLOOD COUNT 3.37 10^6/uL (3.72-5.28); RED CELL DISTRIBUTION WIDTH 14.4 % (11.5-14.0); SEGMENTED NEUTROPHILS % (AUTO) 84.1 % (42-78); TOTAL CELLS COUNTED % (AUTO) 100 %; WHITE BLOOD COUNT 9.7 10^3/uL (4.0-10.5)
[2018-03-10 14:18] LABS: INTERNATIONAL RATION (INR) 1.03
[2018-03-10 14:19] LABS: PARTIAL THROMBOPLASTIN TIME 36.2 SEC (23.5-35.8)
[2018-03-10 14:21] LABS: ALANINE AMINOTRANSFERASE 29 U/L (9-52); ALBUMIN 3.3 g/dL (3.5-5.0); ALKALINE PHOSPHATASE 75 U/L (38-126); ANION GAP 10 (5-19); ASPARTATE AMINO TRANSFERASE 34 U/L (14-36); BILIRUBIN,DIRECT 0.3 mg/dL (0.0-0.4); BLOOD UREA NITROGEN 21 mg/dL (7-20); CALCIUM 8.1 mg/dL (8.4-10.2); CARBON DIOXIDE 30 mmol/L (22-30); CHLORIDE 96 mmol/L (98-107); GLUCOSE 112 mg/dL (75-110); SODIUM 136.3 mmol/L (137-145); TOTAL PROTEIN 6.3 g/dL (6.3-8.2)
[2018-03-10 14:25] LABS: POTASSIUM 2.9 mmol/L (3.6-5.0)
[2018-03-10 14:35] LABS: APPEARANCE,URINE CLEAR; BILIRUBIN,URINE NEGATIVE (NEGATIVE); COLOR,URINE YELLOW; GLUCOSE, URINE NEGATIVE (NEGATIVE); KETONES,URINE TRACE mg/dL (NEGATIVE); LEUKOCYTE ESTERASE,URINE NEGATIVE (NEGATIVE); NITRITE,URINE NEGATIVE (NEGATIVE); PROTEIN,URINE 30 mg/dL (NEGATIVE); URINE SPECIFIC GRAVITY 1.019
[2018-03-10 14:47] LABS: TROPONIN I 0.077 ng/mL
--- NOTE | 2018-03-10 14:48 | RADIOLOGY REPORT (SQ) ---
EXAM DESCRIPTION: PELVIS AP COMPLETED DATE/TIME: 03/10/2018 2:30 pm REASON FOR STUDY: pain COMPARISON: AP pelvis 01/27/2018 Left hip films 06/01/2017 MRI pelvis 03/09/2017 NUMBER OF VIEWS: One view TECHNIQUE: AP Pelvis LIMITATIONS: None. FINDINGS: MINERALIZATION: Osteopenic HIPS: Right immediate hip unremarkable. No fracture. No joint space narrowing or bulky bony spurrin g. Left total hip replacement with acetabular component anchored with a single screw. Distal most t ip of the femoral part of the prosthesis is not included in the field of view. PELVIS AND SACRUM: No acute fracture or dislocation. No worrisome bone lesions. Vacuum phenomenon bi lateral SI joints PUBIS AND ISCHIUM: No acute fracture. LOWER LUMBAR SPINE: Convex leftward lumbar curvature with high-grade disc space loss of height at L2- 3 and L3-4. Multilevel facet arthropathy SOFT TISSUES: No findings. OTHER: No other significant finding. IMPRESSION: No acute findings COMMENT: Pelvic fractures are often occult on plain radiographs. If strong clinical suspicion for f racture, recommend CT or MR. TECHNICAL DOCUMENTATION: JOB ID: [id number] [employer]- All Rights Reserved Reading location - IP/workstation name: [email or web address]
--- NOTE | 2018-03-10 14:49 | RADIOLOGY REPORT (SQ) ---
EXAM DESCRIPTION: CHEST SINGLE VIEW COMPLETED DATE/TIME: 03/10/2018 2:30 pm REASON FOR STUDY: sob COMPARISON: AP chest 01/08/2018 EXAM PARAMETERS: NUMBER OF VIEWS: One view. TECHNIQUE: Single frontal radiographic view of the chest acquired. RADIATION DOSE: NA LIMITATIONS: None. FINDINGS: LUNGS AND PLEURA: Upper lobes are hyperlucent from obstructive disease. In the mid and lo wer lungs there is crowding of bronchovascular markings with few Gin lines worrisome for mild flui d overload or interstitial edema. No pleural effusion. No pneumothorax. MEDIASTINUM AND HILAR STRUCTURES: No masses. Contour normal. HEART AND VASCULAR STRUCTURES: Mild cardiomegaly BONES: No acute findings. HARDWARE: None in the chest. OTHER: No other significant finding. IMPRESSION: Suspect mild fluid overload or congestive failure superimposed on obstructive lung disea se. TECHNICAL DOCUMENTATION: JOB ID: [id number] [employer]- All Rights Reserved Reading location - IP/workstation name: [email or web address]
[2018-03-10 15:04] LABS: A TYPE INFLUENZA AG NEGATIVE (NEGATIVE); B INFLUENZA AG NEGATIVE (NEGATIVE)
[2018-03-10] MEDS: POTASSI CL 20 MEQ/50 ML RIDER 20 MEQ/50 ML RTUPB IV SCH ×2 (15:47→17:09)
[2018-03-10] MEDS ORDERED: AZITHROMYCIN INJ 500 MG VIAL IV ONE (16:04)
[2018-03-10] MEDS ORDERED: CEFTRIAXONE INJ 500 MG VIAL IV ONE (16:04)
[2018-03-10 17:38] LABS: ARTERIAL BLOOD H2CO3 1.13 mmol/L (1.05-1.35); ARTERIAL BLOOD HCO3 26.7 mmol/L (20-24); ARTERIAL BLOOD O2 SATURATION 98.4 % (94-98); ARTERIAL BLOOD PCO2 37.5 mmHg (35-45); ARTERIAL BLOOD PH 7.47 (7.35-7.45); ARTERIAL BLOOD PO2 113.2 mmHg (80-100); ARTERIAL BLOOD TOTAL CO2 27.9 mmol/L (21-25)
[2018-03-10 17:40] LABS: ARTERIAL BLOOD FIO2 2L
[2018-03-10] MEDS ORDERED: CEFTRIAXONE 1 GM/D5W RTU 1 GM/50 ML RTUPB IV ONE (18:00)
[2018-03-10] MEDS ORDERED: POTASSI CL 20 MEQ/NS 1L 1,000 ML IV PRN (18:05)
--- NOTE | 2018-03-10 18:52 | EKG REPORT ---
SEVERITY:- BORDERLINE ECG - SINUS RHYTHM PROBABLE LEFT ATRIAL ABNORMALITY MINIMAL ST DEPRESSION, LATERAL LEADS : Confirmed by: Hemant Jose MD 10-Mar-2018 18:52:06
--- NOTE | 2018-03-10 20:08 | RADIOLOGY REPORT (SQ) ---
CT CHEST ANGIOGRAPHY WITHOUT THEN WITH IV CONTRAST HISTORY: Shortness of breath. COMPARISON: None. TECHNIQUE: CT angiogram of the chest with IV contrast. 3-D MIP images were obtained in coronal and sagittal reconstructions. This exam was performed according to our departmental dose-optimization program, which includes automated exposure control, adjustment of the mA and/or kV according to patient size and/or use of iterative reconstruction technique. FINDINGS: No acute pulmonary embolism is seen in the main or segmental branches. The thyroid gland is unremarkable. There are scattered mediastinal lymph nodes. Query right hilar adenopathy. The heart size is enlarged with trace pericardial effusion. There are mild scattered areas of groundglass opacity in the upper lobes as well as subsegmental atelectasis in the lower lobes. There is also mild interlobular septal thickening at the lung apices. No pleural effusions or pneumothorax. The visualized upper abdomen demonstrates small hiatal hernia. No acute osseous findings are appreciated. IMPRESSION: 1. No acute pulmonary embolism. 2. Mild pulmonary edema pattern in the lungs. 3. No pleural effusions.
[2018-03-10] MEDS ORDERED: FUROSEMIDE INJ/PF 40 MG/4 ML SDV IV ONE (20:42)
[2018-03-10 21:27] LABS: INTERNATIONAL RATION (INR) 1.07; PROTHROMBIN TIME 14.5 SEC (11.4-15.4)
[2018-03-10 21:39] LABS: LIPASE 40.7 U/L (23-300); PHOSPHORUS 3.7 mg/dL (2.5-4.5)
[2018-03-10] MEDS: ASPIRIN 81 MG TABLET, ENT COATED PO SCH (21:43)
[2018-03-10] MEDS: LISINOPRIL 10 MG TABLET PO SCH (21:43)
[2018-03-10] MEDS: ENOXAPARIN SODIUM INJ 40 MG/0.4 ML DISP.SYRIN SUBCUT SCH (21:44)
[2018-03-10 21:48] LABS: FREE T4 (FREE THYROXINE) 1.35 ng/dL (0.78-2.19)
[2018-03-10 21:51] LABS: CREATINE KINASE MB 2.12 ng/mL (<4.55); TROPONIN I 0.045 ng/mL
[2018-03-10 22:02] LABS: THYROID STIMULATING HORMONE 0.79 uIU/mL (0.47-4.68)
[2018-03-11 03:36] LABS: ABSOLUTE EOSINOPHILS # (AUTO) 0.5 10^3/uL (0.0-0.6); ABSOLUTE LYMPHOCYTES (AUTO) 1.2 10^3/uL (0.5-4.7); ABSOLUTE MONOCYTES (AUTO) 0.5 10^3/uL (0.1-1.4); ABSOLUTE NEUT (AUTO) 5.4 10^3/uL (1.7-8.2); BASOPHILS % (AUTO) 0.6 % (0-2); EOSINOPHILS % (AUTO) 6.3 % (0-6); HEMOGLOBIN 8.8 g/dL (12.0-15.5); LYMPHOCYTES % (AUTO) 16.2 % (13-45); MEAN CORPUSCULAR HEMOGLOBIN 28.9 pg (27.0-33.4); MEAN CORPUSCULAR HGB CONC 33.9 g/dL (32.0-36.0); MEAN CORPUSCULAR VOLUME 85 fl (80-97); MONOCYTES % (AUTO) 7.1 % (3-13); PLATELET COUNT 158 10^3/uL (150-450); RED BLOOD COUNT 3.05 10^6/uL (3.72-5.28); RED CELL DISTRIBUTION WIDTH 14.3 % (11.5-14.0); SEGMENTED NEUTROPHILS % (AUTO) 69.8 % (42-78); TOTAL CELLS COUNTED % (AUTO) 100 %; WHITE BLOOD COUNT 7.7 10^3/uL (4.0-10.5)
[2018-03-11 03:50] LABS: ALANINE AMINOTRANSFERASE 39 U/L (9-52); ALBUMIN 2.8 g/dL (3.5-5.0); ALKALINE PHOSPHATASE 73 U/L (38-126); ANION GAP 7 (5-19); ASPARTATE AMINO TRANSFERASE 38 U/L (14-36); BILIRUBIN,DIRECT 0.3 mg/dL (0.0-0.4); BILIRUBIN,TOTAL 0.8 mg/dL (0.2-1.3); BLOOD UREA NITROGEN 27 mg/dL (7-20); CARBON DIOXIDE 31 mmol/L (22-30); CHLORIDE 98 mmol/L (98-107); CREATINE KINASE 241 U/L (30-135); GLUCOSE 95 mg/dL (75-110); SODIUM 136.1 mmol/L (137-145); TOTAL PROTEIN 5.6 g/dL (6.3-8.2)
[2018-03-11 04:02] LABS: CREATINE KINASE MB 6.42 ng/mL (<4.55); TROPONIN I 0.042 ng/mL
[2018-03-11] MEDS ORDERED: POTASSIUM CHLORIDE 10 MEQ CAPSULE.ER PO ONE ×2 (05:00→09:00)
[2018-03-11] MEDS ORDERED: POTASSIUM CHLORIDE 20 MEQ/50 ML RTU IV SCH ×3 (05:00→09:00)
[2018-03-11 05:23] LABS: CHOLESTEROL 108.94 mg/dL (0-200); TRIGLYCERIDES 86 mg/dL (<150)
[2018-03-11 05:33] LABS: DIRECT LDL 64 mg/dL (<100)
[2018-03-11] MEDS: LISINOPRIL 10 MG TABLET PO SCH (10:34)
[2018-03-11] MEDS: ASPIRIN 81 MG TABLET, ENT COATED PO SCH (10:34)
[2018-03-11] MEDS: ENOXAPARIN SODIUM INJ 40 MG/0.4 ML DISP.SYRIN SUBCUT SCH (10:34)
[2018-03-11 10:50] LABS: CREATINE KINASE MB 3.75 ng/mL (<4.55); TROPONIN I 0.03 ng/mL
[2018-03-11 12:38] LABS: ANION GAP 6 (5-19); BLOOD UREA NITROGEN 25 mg/dL (7-20); CALCIUM 8.4 mg/dL (8.4-10.2); CARBON DIOXIDE 30 mmol/L (22-30); CHLORIDE 102 mmol/L (98-107); GLUCOSE 98 mg/dL (75-110); POTASSIUM 3.7 mmol/L (3.6-5.0)
[2018-03-11 17:14] LABS: APPEARANCE,URINE SLIGHTLY-CLOUDY; BILIRUBIN,URINE NEGATIVE (NEGATIVE); COLOR,URINE YELLOW; GLUCOSE, URINE NEGATIVE (NEGATIVE); KETONES,URINE NEGATIVE (NEGATIVE); LEUKOCYTE ESTERASE,URINE NEGATIVE (NEGATIVE); NITRITE,URINE NEGATIVE (NEGATIVE); PROTEIN,URINE 30 mg/dL (NEGATIVE); URINE SPECIFIC GRAVITY 1.033
[2018-03-11 17:26] LABS: URINE AMPHETAMINES SCREEN NEGATIVE; URINE BARBITURATES SCREEN NEGATIVE; URINE BENZODIAZEPINES SCREEN NEGATIVE; URINE COCAINE SCREEN NEGATIVE; URINE MARIJUANA (THC) SCREEN NEGATIVE; URINE METHADONE SCREEN NEGATIVE; URINE PHENCYCLIDINE SCREEN NEGATIVE
[2018-03-11 17:40] LABS: UR PRO/CREAT RATIO RESULT 0.3 mg/mg (0.0-0.2); URINE CREATININE 124.3 mg/dL (15-278); URINE PROTEIN 39.3 mg/dL (<12)
--- NOTE | 2018-03-11 19:46 | PDOC H&P ---
History of Present Illness Admission Date/PCP: 03/10/18 16:41 PALLAVI DUCKWORTH MD History of Present Illness: GILBERT TEIXEIRA is a 88 year old female.She came to the emergency room for evaluation of back pain, generalized weakness with inability to walk, she called EMS, when EMS arrived in her residence she was found to have fever and also the oxygen saturation was low, there was no cough there was no for there is no nausea. The temperature recorded in the emergency room was 101.3 Fahrenheit,, the emergency room physician felt she may have pneumonia, she was given antibiotic in the e mergency room.She had left hip arthroplasty on January 27, 2018, I was concerned about pulmonary embolism because of a recent left hip arthroplasty, the d-dimer was elevated, BNP was elevated because of the elevated BNP and d- dimer as suspected pulmonary embolism CT chest angiography was ordered, d emonstrated scattered mediastinal lymph nodes, questionable right hilar adenopathy, the heart size was enlarged with trace pericardial effusion. There are mild scattered areas of groundglass opacity in the upper lobes as well as subsegmental atelectasis in the lower lobes. There is also mild interlobular septal thickening of the lung apices. No pleural effusion or pneumothorax the impression was no pulmonary embolism, mild pulmonary edema pattern the lungs.The 2D echo done on 01/26/2018 showed preserved left ventricular systolic function estimated ejection fraction 60%, mild calcific aortic valve stenosis Past Medical History Cardiac Medical History: Reports: Coronary Artery Disease, Hyperlipidema, Hypertension, Other - Mild aortic valve stenosis GI Medical History: Reports: Gastroesophageal Reflux Disease Musculoskeltal Medical History: Reports: Arthritis Psychiatric Medical History: Reports: Depression Past Surgical History Past Surgical History: Reports: Section - x2 Social History Smoking Status: Never Smoker Frequency of Alcohol Use: None Hx Recreational Drug Use: No Hx Prescription Drug Abuse: No - Advance Directive Resuscitation Status: Full Code Family History Family History: Reviewed & Not Pertinent Parental Family History Reviewed: Yes Children Family History Reviewed: Yes Sibling(s) Family History Reviewed.: Yes Medication/Allergy Home Medications: Aspirin [Ecotrin 81 mg EC Tablet] 81 mg PO DAILY 03/10/18 Ibuprofen [Motrin 800 mg Tablet] 800 mg PO Q8 03/10/18 Lisinopril [Prinivil 40 mg Tablet] 40 mg PO DAILY 03/10/18 Simvastatin [Zocor 20 mg Tablet] 20 mg PO QPM 03/10/18 Vortioxetine Hydrobromide [Trintellix] 10 mg PO DAILY 03/10/18 Zolpidem Tartrate [Ambien 5 mg Tablet] 5 mg PO HSP PRN 03/10/18 Allergies/Adverse Reactions: No Known Allergies Allergy (Verified 03/10/18 14:02) Review of Systems Constitutional: ABSENT: chills, fever(s), headache(s), weight gain, weight loss Eyes: ABSENT: visual disturbances Ears: ABSENT: hearing changes Cardiovascular: ABSENT: as per HPI, chest pain, edema, orthropnea, palpitations, other Respiratory: ABSENT: cough, hemoptysis Gastrointestinal: ABSENT: abdominal pain, constipation, diarrhea, hematemesis, hematochezia, nausea, vomiting Genitourinary: ABSENT: dysuria, hematuria Musculoskeletal: PRESENT: back pain Integumentary: ABSENT: rash, wounds Neurological: ABSENT: abnormal gait, abnormal speech, confusion, dizziness, focal weakness, syncope Psychiatric: ABSENT: anxiety, depression, homidical ideation, suicidal ideation Endocrine: ABSENT: cold intolerance, heat intolerance, menstrual abnormalities, polydipsia, polyuria Hematologic/Lymphatic: ABSENT: easy bleeding, easy bruising, lymphadenopathy Physical Exam Vital Signs: Temp Pulse Resp BP Pulse Ox 98.8 F 79 16 138/62 H 100 03/11/18 16:56 03/11/18 16:56 03/11/18 16:56 03/11/18 16:56 03/11/18 16:56 Intake & Output 03/10/18 03/11/18 03/12/18 06:59 06:59 06:59 Intake Total 134 651 Output Total 400 Balance 134 251 Weight 57.5 kg Head exam: PRESENT: atraumatic, normocephalic Eye exam: PRESENT: conjunctiva pink, EOMI, PERRLA Ear exam: PRESENT: normal external ear exam Mouth exam: PRESENT: moist, tongue midline Neck exam: PRESENT: full ROM Respiratory exam: PRESENT: clear to auscultation jadon Cardiovascular exam: PRESENT: RRR, +S1, +S2 Vascular exam: PRESENT: normal capillary refill GI/Abdominal exam: PRESENT: normal bowel sounds, soft Rectal exam: PRESENT: deferred Neurological exam: PRESENT: alert, CN II-XII grossly intact Psychiatric exam: PRESENT: appropriate affect, normal mood Skin exam: PRESENT: dry, intact, warm Results Laboratory Results: 03/11/18 03:17 03/11/18 12:00 03/10/18 03/10/18 03/10/18 13:35 21:00 21:00 WBC RBC Hgb Hct MCV MCH MCHC RDW Plt Count Seg Neutrophils % Lymphocytes % Monocytes % Eosinophils % Basophils % Absolute Neutrophils Absolute Lymphocytes Absolute Monocytes Absolute Eosinophils Absolute Basophils Sodium Potassium Chloride Carbon Dioxide Anion Gap BUN Creatinine Est GFR ( Amer) Est GFR (Non-Af Amer) Glucose Calcium Phosphorus 3.7 Magnesium 1.9 Total Bilirubin AST ALT Alkaline Phosphatase Ammonia < 8.7 L Total Protein Albumin Triglycerides Cholesterol LDL Cholesterol Direct VLDL Cholesterol HDL Cholesterol Amylase 37 Lipase 40.7 TSH 0.79 Free T4 1.35 Urine Color Urine Appearance Urine pH Ur Specific [place] Urine Protein Urine Glucose (UA) Urine Ketones Urine Blood Urine Nitrite Ur Leukocyte Esterase Urine WBC (Auto) Urine RBC (Auto) 03/11/18 03/11/18 03/11/18 03:17 03:17 12:00 WBC 7.7 RBC 3.05 L Hgb 8.8 L Hct 26.0 L MCV 85 MCH 28.9 MCHC 33.9 RDW 14.3 H Plt Count 158 Seg Neutrophils % 69.8 Lymphocytes % 16.2 Monocytes % 7.1 Eosinophils % 6.3 H Basophils % 0.6 Absolute Neutrophils 5.4 Absolute Lymphocytes 1.2 Absolute Monocytes 0.5 Absolute Eosinophils 0.5 Absolute Basophils 0.0 Sodium 136.1 L 138.0 Potassium 3.0 L* 3.7 Chloride 98 102 Carbon Dioxide 31 H 30 Anion Gap 7 6 BUN 27 H 25 H Creatinine 0.61 0.53 Est GFR ( Amer) > 60 > 60 Est GFR (Non-Af Amer) > 60 > 60 Glucose 95 98 Calcium 8.0 L 8.4 Phosphorus Magnesium 1.9 Total Bilirubin 0.8 AST 38 H ALT 39 Alkaline Phosphatase 73 Ammonia Total Protein 5.6 L Albumin 2.8 L Triglycerides 86 Cholesterol 108.94 LDL Cholesterol Direct 64 VLDL Cholesterol 17.0 HDL Cholesterol 33 L Amylase Lipase TSH Free T4 Urine Color Urine Appearance Urine pH Ur Specific [place] Urine Protein Urine Glucose (UA) Urine Ketones Urine Blood Urine Nitrite Ur Leukocyte Esterase Urine WBC (Auto) Urine RBC (Auto) 03/11/18 16:35 WBC RBC Hgb Hct MCV MCH MCHC RDW Plt Count Seg Neutrophils % Lymphocytes % Monocytes % Eosinophils % Basophils % Absolute Neutrophils Absolute Lymphocytes Absolute Monocytes Absolute Eosinophils Absolute Basophils Sodium Potassium Chloride Carbon Dioxide Anion Gap BUN Creatinine Est GFR ( Amer) Est GFR (Non-Af Amer) Glucose Calcium Phosphorus Magnesium Total Bilirubin AST ALT Alkaline Phosphatase Ammonia Total Protein Albumin Triglycerides Cholesterol LDL Cholesterol Direct VLDL Cholesterol HDL Cholesterol Amylase Lipase TSH Free T4 Urine Color YELLOW Urine Appearance SLIGHTLY-CLOUDY Urine pH 6.0 Ur Specific [place] 1.033 Urine Protein 30 H Urine Glucose (UA) NEGATIVE Urine Ketones NEGATIVE Urine Blood SMALL H Urine Nitrite NEGATIVE Ur Leukocyte Esterase NEGATIVE Urine WBC (Auto) 3 Urine RBC (Auto) 3 03/10/18 03/10/18 03/10/18 13:35 21:00 21:00 Creatine Kinase 65 CK-MB (CK-2) 2.12 Troponin I 0.077 0.045 NT-Pro-B Natriuret Pep 5450 H 03/11/18 03/11/18 03/11/18 03:17 03:17 09:37 Creatine Kinase 241 H 249 H CK-MB (CK-2) 6.42 H Troponin I 0.042 NT-Pro-B Natriuret Pep 03/11/18 09:37 Creatine Kinase CK-MB (CK-2) 3.75 Troponin I 0.030 NT-Pro-B Natriuret Pep Impressions: Chest/Abdomen CTA 03/10/18 00:00 IMPRESSION: 1. No acute pulmonary embolism. 2. Mild pulmonary edema pattern in the lungs. 3. No pleural effusions. Chest X-Ray 03/10/18 13:53 IMPRESSION: Suspect mild fluid overload or congestive failure superimposed on obstructive lung disease. Pelvis X-Ray 03/10/18 14:06 IMPRESSION: No acute findings Assessment & Plan - Diagnosis (1) Acute pulmonary edema Is this a current diagnosis for this admission?: Yes Plan: The chest x-ray, CTA chest, BNP suggest acute pulmonary edema but patient is not symptomatic she has no shortness of breath she has no chest pain, she had a fever of unknown etiology, she is not particularly complaining of any lateralizing signs or organ specific symptoms other than back pain, the only reasonable explanation is that this is probably flash pulmonary edema precipitated by demand supply mismatch due to fever with a background of aortic stenosis, 2D echo will be ordered.
--- NOTE | 2018-03-11 19:50 | PDOC PROGRESS REPORT ---
Subjective Progress Note for:: 03/11/18 Subjective:: Patient was seen by the bedside, she was admitted yesterday for what seems to be flash pulmonary edema, She is doing quite well today Reason For Visit: SHORTNESS OF BREATH, CHF, PE R/O Physical Exam Vital Signs: Temp Pulse Resp BP Pulse Ox 98.8 F 79 16 138/62 H 100 03/11/18 16:56 03/11/18 16:56 03/11/18 16:56 03/11/18 16:56 03/11/18 16:56 Intake & Output 03/10/18 03/11/18 03/12/18 06:59 06:59 06:59 Intake Total 134 651 Output Total 400 Balance 134 251 Weight 57.5 kg General appearance: PRESENT: no acute distress Eye exam: PRESENT: PERRLA Respiratory exam: PRESENT: clear to auscultation jadon Cardiovascular exam: PRESENT: +S1, +S2, systolic murmur GI/Abdominal exam: PRESENT: soft Neurological exam: PRESENT: alert Results Laboratory Results: 03/11/18 03:17 03/11/18 12:00 03/10/18 03/10/18 03/10/18 13:35 21:00 21:00 WBC RBC Hgb Hct MCV MCH MCHC RDW Plt Count Seg Neutrophils % Lymphocytes % Monocytes % Eosinophils % Basophils % Absolute Neutrophils Absolute Lymphocytes Absolute Monocytes Absolute Eosinophils Absolute Basophils Sodium Potassium Chloride Carbon Dioxide Anion Gap BUN Creatinine Est GFR ( Amer) Est GFR (Non-Af Amer) Glucose Calcium Phosphorus 3.7 Magnesium 1.9 Total Bilirubin AST ALT Alkaline Phosphatase Ammonia < 8.7 L Total Protein Albumin Triglycerides Cholesterol LDL Cholesterol Direct VLDL Cholesterol HDL Cholesterol Amylase 37 Lipase 40.7 TSH 0.79 Free T4 1.35 Urine Color Urine Appearance Urine pH Ur Specific [place] Urine Protein Urine Glucose (UA) Urine Ketones Urine Blood Urine Nitrite Ur Leukocyte Esterase Urine WBC (Auto) Urine RBC (Auto) 03/11/18 03/11/18 03/11/18 03:17 03:17 12:00 WBC 7.7 RBC 3.05 L Hgb 8.8 L Hct 26.0 L MCV 85 MCH 28.9 MCHC 33.9 RDW 14.3 H Plt Count 158 Seg Neutrophils % 69.8 Lymphocytes % 16.2 Monocytes % 7.1 Eosinophils % 6.3 H Basophils % 0.6 Absolute Neutrophils 5.4 Absolute Lymphocytes 1.2 Absolute Monocytes 0.5 Absolute Eosinophils 0.5 Absolute Basophils 0.0 Sodium 136.1 L 138.0 Potassium 3.0 L* 3.7 Chloride 98 102 Carbon Dioxide 31 H 30 Anion Gap 7 6 BUN 27 H 25 H Creatinine 0.61 0.53 Est GFR ( Amer) > 60 > 60 Est GFR (Non-Af Amer) > 60 > 60 Glucose 95 98 Calcium 8.0 L 8.4 Phosphorus Magnesium 1.9 Total Bilirubin 0.8 AST 38 H ALT 39 Alkaline Phosphatase 73 Ammonia Total Protein 5.6 L Albumin 2.8 L Triglycerides 86 Cholesterol 108.94 LDL Cholesterol Direct 64 VLDL Cholesterol 17.0 HDL Cholesterol 33 L Amylase Lipase TSH Free T4 Urine Color Urine Appearance Urine pH Ur Specific [place] Urine Protein Urine Glucose (UA) Urine Ketones Urine Blood Urine Nitrite Ur Leukocyte Esterase Urine WBC (Auto) Urine RBC (Auto) 03/11/18 16:35 WBC RBC Hgb Hct MCV MCH MCHC RDW Plt Count Seg Neutrophils % Lymphocytes % Monocytes % Eosinophils % Basophils % Absolute Neutrophils Absolute Lymphocytes Absolute Monocytes Absolute Eosinophils Absolute Basophils Sodium Potassium Chloride Carbon Dioxide Anion Gap BUN Creatinine Est GFR ( Amer) Est GFR (Non-Af Amer) Glucose Calcium Phosphorus Magnesium Total Bilirubin AST ALT Alkaline Phosphatase Ammonia Total Protein Albumin Triglycerides Cholesterol LDL Cholesterol Direct VLDL Cholesterol HDL Cholesterol Amylase Lipase TSH Free T4 Urine Color YELLOW Urine Appearance SLIGHTLY-CLOUDY Urine pH 6.0 Ur Specific [place] 1.033 Urine Protein 30 H Urine Glucose (UA) NEGATIVE Urine Ketones NEGATIVE Urine Blood SMALL H Urine Nitrite NEGATIVE Ur Leukocyte Esterase NEGATIVE Urine WBC (Auto) 3 Urine RBC (Auto) 3 03/10/18 03/10/18 03/10/18 13:35 21:00 21:00 Creatine Kinase 65 CK-MB (CK-2) 2.12 Troponin I 0.077 0.045 NT-Pro-B Natriuret Pep 5450 H 03/11/18 03/11/18 03/11/18 03:17 03:17 09:37 Creatine Kinase 241 H 249 H CK-MB (CK-2) 6.42 H Troponin I 0.042 NT-Pro-B Natriuret Pep 03/11/18 09:37 Creatine Kinase CK-MB (CK-2) 3.75 Troponin I 0.030 NT-Pro-B Natriuret Pep Impressions: Chest/Abdomen CTA 03/10/18 00:00 IMPRESSION: 1. No acute pulmonary embolism. 2. Mild pulmonary edema pattern in the lungs. 3. No pleural effusions. Chest X-Ray 03/10/18 13:53 IMPRESSION: Suspect mild fluid overload or congestive failure superimposed on obstructive lung disease. Pelvis X-Ray 03/10/18 14:06 IMPRESSION: No acute findings Assessment & Plan - Diagnosis (1) Acute pulmonary edema Is this a current diagnosis for this admission?: Yes (2) Aortic valve stenosis Qualifiers: Cardiac valve disease etiology: nonrheumatic Qualified Code(s): I35.0 - Nonrheumatic aortic (valve) stenosis Is this a current diagnosis for this admission?: Yes (3) Coronary artery disease Qualifiers: Coronary Disease-Associated Artery/Lesion type: [place] artery [place] vs. transplanted heart: [place] heart Associated angina: without angina Qualified Code(s): I25.10 - Atherosclerotic heart disease of [place] coronary artery without angina pectoris Is this a current diagnosis for this admission?: Yes
[2018-03-12] MEDS ORDERED: ACETAMINOPHEN 325 MG TABLET PO PRN (01:45)
[2018-03-12 05:35] LABS: ABSOLUTE EOSINOPHILS # (AUTO) 0.4 10^3/uL (0.0-0.6); ABSOLUTE LYMPHOCYTES (AUTO) 1.4 10^3/uL (0.5-4.7); ABSOLUTE MONOCYTES (AUTO) 0.5 10^3/uL (0.1-1.4); ABSOLUTE NEUT (AUTO) 3.2 10^3/uL (1.7-8.2); BASOPHILS % (AUTO) 0.6 % (0-2); EOSINOPHILS % (AUTO) 7.1 % (0-6); HEMATOCRIT 26.9 % (36.0-47.0); HEMOGLOBIN 9.1 g/dL (12.0-15.5); LYMPHOCYTES % (AUTO) 25.9 % (13-45); MEAN CORPUSCULAR HEMOGLOBIN 28.6 pg (27.0-33.4); MEAN CORPUSCULAR HGB CONC 33.8 g/dL (32.0-36.0); MEAN CORPUSCULAR VOLUME 85 fl (80-97); MONOCYTES % (AUTO) 9.5 % (3-13); PLATELET COUNT 188 10^3/uL (150-450); RED BLOOD COUNT 3.17 10^6/uL (3.72-5.28); SEGMENTED NEUTROPHILS % (AUTO) 56.9 % (42-78); TOTAL CELLS COUNTED % (AUTO) 100 %; WHITE BLOOD COUNT 5.5 10^3/uL (4.0-10.5)
[2018-03-12 05:53] LABS: ALANINE AMINOTRANSFERASE 59 U/L (9-52); ALBUMIN 2.9 g/dL (3.5-5.0); ALKALINE PHOSPHATASE 79 U/L (38-126); ANION GAP 5 (5-19); ASPARTATE AMINO TRANSFERASE 69 U/L (14-36); BILIRUBIN,DIRECT 0.2 mg/dL (0.0-0.4); BILIRUBIN,TOTAL 0.6 mg/dL (0.2-1.3); BLOOD UREA NITROGEN 16 mg/dL (7-20); CALCIUM 8.4 mg/dL (8.4-10.2); CARBON DIOXIDE 30 mmol/L (22-30); CHLORIDE 104 mmol/L (98-107); GLUCOSE 96 mg/dL (75-110); POTASSIUM 3.7 mmol/L (3.6-5.0); SODIUM 139.3 mmol/L (137-145); TOTAL PROTEIN 5.7 g/dL (6.3-8.2)
[2018-03-12] MEDS: ASPIRIN 81 MG TABLET, ENT COATED PO SCH (09:35)
[2018-03-12] MEDS: LISINOPRIL 10 MG TABLET PO SCH (09:36)
[2018-03-12] MEDS: ENOXAPARIN SODIUM INJ 40 MG/0.4 ML DISP.SYRIN SUBCUT SCH (09:39)
[2018-03-12 15:57] VITALS: BP 166/76
--- NOTE | 2018-03-12 20:01 | PDOC DISCHARGE SUMMARY ---
General - Admit/Disc Date/PCP Admission Date/Primary Care Provider: 03/10/18 16:41 PALLAVI DUCKWORTH MD Discharge Date: 03/12/18 - Discharge Diagnosis (1) Acute pulmonary edema Is this a current diagnosis for this admission?: Yes (2) Aortic valve stenosis Is this a current diagnosis for this admission?: Yes (3) Coronary artery disease Is this a current diagnosis for this admission?: Yes - Additional Information Resuscitation Status: Full Code Discharge Diet: Cardiac Discharge Activity: Activity As Tolerated, Balance Activity w/Rest Home Medications: RX: Aspirin [Ecotrin 81 mg EC Tablet] 81 mg PO DAILY 03/10/18 RX: Lisinopril [Prinivil 40 mg Tablet] 40 mg PO DAILY 03/10/18 RX: Simvastatin [Zocor 20 mg Tablet] 20 mg PO QPM 03/10/18 RX: Vortioxetine Hydrobromide [Trintellix] 10 mg PO DAILY 03/10/18 RX: Zolpidem Tartrate [Ambien 5 mg Tablet] 5 mg PO HSP PRN 03/10/18 History of Present Illness History of Present Illness: GILBERT TEIXEIRA is a 88 year old female.She came to the emergency room for evaluation of back pain, generalized weakness with inability to walk, she called EMS, when EMS arrived in her residence she was found to have fever and also the oxygen saturation was low, there was no cough there was no for there is no nausea. The temperature recorded in the emergency room was 101.3 Fahrenheit,, the emergency room physician felt she may have pneumonia, she was given antibiotic in the emergency room.She had left hip arthroplasty on January 27, 2018, I was concerned about pulmonary embolism because of a recent left hip arthroplasty, th e d-dimer was elevated, BNP was elevated because of the elevated BNP and d-dimer as suspected pulmonary embolism CT chest angiography was ordered, demonstrated scattered mediastinal lymph nodes, questionable right hilar adenopathy, the heart size was enlarged with trace pericardial effusion. There are mild scattered areas of groundglass opacity in the upper lobes as well as subsegmental atelectasis in the lower lobes. There is also mild interlobular septal thickening of the lung apices. No pleural effusion or pneumothorax the impression was no pulmonary embolism, mild pulmonary edema pattern the lungs.The 2D echo done on 01/26/2018 showed preserved left ventricular systolic function estimated ejection fraction 60%, mild calcific aortic valve stenosis Hospital Course Hospital Course: Patient was admitted for the management of flash pulmonary edema, she was treated with a dose of furosemide with good result, a 2D echo was done, it demonstrated aortic valve stenosis mild preserved ejection fraction of left ventricle. Patient presented with acute pulmonary edema that suggest left ventricular heart failure on the basis of the chest x-ray, the serum BNP, the CTA chest that was done., She was not symptomatic with shortness of breath or chest painThe explanation was based on supply demand mismatch, she had a fever with temperature 101 Fahrenheit, the exact cause of the fever was not known, she has aortic valve stenosis, the fever provoked increased metabolic demand that could not be provided by the heart because of the aortic valve stenosis leading to heart failure.The cardiac enzymes were indeterminate Physical Exam Vital Signs: Temp Pulse Resp BP Pulse Ox 97.8 F 93 18 166/76 H 96 03/12/18 18:14 03/12/18 18:14 03/12/18 18:14 03/12/18 15:29 03/12/18 18:14 Intake & Output 03/11/18 03/12/18 03/13/18 06:59 06:59 06:59 Intake Total 134 651 118 Output Total 800 500 Balance 134 -149 -382 Weight 57.5 kg 58.6 kg General appearance: PRESENT: no acute distress, well-developed, well-nourished Head exam: PRESENT: atraumatic, normocephalic Eye exam: PRESENT: conjunctiva pink, EOMI, PERRLA Ear exam: PRESENT: normal external ear exam Mouth exam: PRESENT: moist, tongue midline Neck exam: PRESENT: full ROM Respiratory exam: PRESENT: clear to auscultation jadon Cardiovascular exam: PRESENT: RRR, +S1, +S2, systolic murmur Pulses: PRESENT: normal dorsalis pedis pul, +2 pedal pulses bilateral Vascular exam: PRESENT: normal capillary refill GI/Abdominal exam: PRESENT: normal bowel sounds, soft Rectal exam: PRESENT: deferred Neurological exam: PRESENT: alert, CN II-XII grossly intact Psychiatric exam: PRESENT: appropriate affect, normal mood Skin exam: PRESENT: dry, intact, warm Results Laboratory Results: 03/12/18 04:24 03/12/18 04:24 03/12/18 03/12/18 04:24 04:24 WBC 5.5 RBC 3.17 L Hgb 9.1 L Hct 26.9 L MCV 85 MCH 28.6 MCHC 33.8 RDW 15.0 H Plt Count 188 Seg Neutrophils % 56.9 Lymphocytes % 25.9 Monocytes % 9.5 Eosinophils % 7.1 H Basophils % 0.6 Absolute Neutrophils 3.2 Absolute Lymphocytes 1.4 Absolute Monocytes 0.5 Absolute Eosinophils 0.4 Absolute Basophils 0.0 Sodium 139.3 Potassium 3.7 Chloride 104 Carbon Dioxide 30 Anion Gap 5 BUN 16 Creatinine 0.43 L Est GFR ( Amer) > 60 Est GFR (Non-Af Amer) > 60 Glucose 96 Calcium 8.4 Total Bilirubin 0.6 AST 69 H ALT 59 H Alkaline Phosphatase 79 Total Protein 5.7 L Albumin 2.9 L 03/10/18 14:00 Catheterized Urine Urine Culture - Final NO GROWTH 2 DAYS 03/10/18 03/10/18 03/10/18 13:35 21:00 21:00 Creatine Kinase 65 CK-MB (CK-2) 2.12 Troponin I 0.077 0.045 NT-Pro-B Natriuret Pep 5450 H 03/11/18 03/11/18 03/11/18 03:17 03:17 09:37 Creatine Kinase 241 H 249 H CK-MB (CK-2) 6.42 H Troponin I 0.042 NT-Pro-B Natriuret Pep 03/11/18 09:37 Creatine Kinase CK-MB (CK-2) 3.75 Troponin I 0.030 NT-Pro-B Natriuret Pep Impressions: Chest/Abdomen CTA 03/10/18 00:00 IMPRESSION: 1. No acute pulmonary embolism. 2. Mild pulmonary edema pattern in the lungs. 3. No pleural effusions. Chest X-Ray 03/10/18 13:53 IMPRESSION: Suspect mild fluid overload or congestive failure superimposed on obstructive lung disease. Pelvis X-Ray 03/10/18 14:06 IMPRESSION: No acute findings Qualifiers - * PATIENT BEING DISCHARGED WITH ANY OF THE FOLLOWING DIAGNOSIS: No
[2018-03-12] MEDS ORDERED: SIMVASTATIN 10 MG TABLET PO SCH (22:00)
[2018-03-13] MEDS ORDERED: (PENDING PHARMACY ID) (Vortioxetine Hydrobromide [Trintellix] 10 MG) PO SCH (10:00)
--- NOTE | 2018-03-13 22:17 | XCELERA REPORT ---
[address] [address] Transthoracic Echocardiogram Report Name: GILBERT TEIXEIRA Age: 88 yrs Gender: Female : 1930 Patient Status: Inpatient Patient Location: [address] [place], [place] [address] Study Date: 03/12/2018 02:03 PM Height: 66 in Weight: 126 lb BSA: 1.6 m2 Procedure: A two-dimensional transthoracic echocardiogram with color flow Doppler was performed. Study Quality: Fair. Reason For Study: chf History: CHF. Ordering Physician: PALLAVI DUCKWORTH Performed By: Cm Daniel Interpretation Summary There is normal left ventricular wall thickness. LV EF is 65% The left ventricular ejection fraction is normal. Doppler measurements suggest impaired left ventricular relaxation, which is associated with grade I/IV or mild diastolic dysfunction The left ventricular wall motion is normal. There is no thrombus. There is no ventricular septal defect visualized. The right ventricle is normal in size and function. The right atrium is normal. The left atrium is mildly dilated. The interatrial septum is intact with no evidence for an atrial septal defect. There is no Doppler evidence for an interatrial shunt There is no evidence of mitral valve prolapse. There is no vegetation seen on the mitral valve. There is no mitral valve stenosis. There is a moderate amount of mitral regurgitation The jet is an eccentric posteriorly directed jet of MR. There is no aortic valvular vegetation. There is mild aortic stenosis There is a peak gradient of 18 mm of Hg. No hemodynamically significant valvular aortic stenosis. There is no LVOT obstruction. There is a mild amount of aortic regurgitation There is no tricuspid stenosis. There is a mild amount of tricuspid regurgitation There is mild pulmonary hypertension by echo RVSP is 32 to 37 mm of Hg , with RA mean of 5 to 10. There is no pulmonic valvular stenosis. There is a trace amount of pulmonic regurgitation The aortic root is normal size. The inferior vena cava appeared normal and decreased > 50% with respiration (RAP 5-10 mmHg) There is no pericardial effusion. MMode/2D Measurements & Calculations RVDd: 2.4 cm LVIDd: 4.9 cm FS: 39.9 % Ao root diam: 2.8 cm IVSd: 0.93 cm LVIDs: 3.0 cm EDV(Teich): Ao root area: LVPWd: 1.2 cm 113.8 ml 6.1 cm2 ESV(Teich): 33.8 mlLA dimension: 4.1 cm EF(Teich): 70.3 % LVOT diam: 2.2 cm LVLd ap4: 6.5 cm SV(MOD-sp4): LVOT area: EDV(MOD-sp4): 26.0 ml 46.0 ml 3.9 cm2 LVLs ap4: 5.4 cm ESV(MOD-sp4): 20.0 ml EF(MOD-sp4): 56.5 % Doppler Measurements & Calculations MV E max hugo: MV P1/2t max hugo: Ao V2 max: AI max hugo: 59.8 cm/sec 129.9 cm/sec 212.4 cm/sec 473.8 cm/sec MV A max hugo: MV P1/2t: 72.8 msec Ao max PG: AI max P.7 cm/sec MVA(P1/2t): 3.0 cm2 18.0 mmHg 89.8 mmHg MV E/A: 0.77 MV dec slope: Ao V2 mean: AI dec slope: 522.8 cm/sec2 152.5 cm/sec 383.7 cm/sec2 MV dec time: Ao mean PG: AI P1/2t: 0.17 sec 10.2 mmHg 361.7 msec Ao V2 VTI: 40.8 cm BASILIO(I,D): 2.4 cm2 BASILIO(V,D): 2.3 cm2 LV V1 max PG: MR max hugo: SV(LVOT): 96.8 ml PA V2 max: 6.2 mmHg 582.4 cm/sec 134.3 cm/sec LV V1 mean PG: MR max PG: PA max P.7 mmHg 3.2 mmHg 135.7 mmHg LV V1 max: 124.6 cm/sec LV V1 mean: 82.1 cm/sec LV V1 VTI: 24.6 cm PI end-d hugo: TR max huog: AV P1/2t-pr_phl: MV P1/2t-pr_phl: 146.6 cm/sec 257.9 cm/sec 361.7 msec 72.8 msec TR max P.6 mmHg Left Ventricle The left ventricle is normal in size. There is normal left ventricular wall thickness. LV EF is 65%. The left ventricular ejection fraction is normal. Doppler measurements suggest impaired left ventricular relaxation, which is associated with grade I/IV or mild diastolic dysfunction. The left ventricular wall motion is normal. There is no thrombus. There is no ventricular septal defect visualized. Right Ventricle The right ventricle is normal in size and function. Atria The right atrium is normal. The left atrium is mildly dilated. The interatrial septum is intact with no evidence for an atrial septal defect. There is no Doppler evidence for an interatrial shunt. Mitral Valve There is mild mitral annular calcification. There is no evidence of mitral valve prolapse. There is no vegetation seen on the mitral valve. There is no mitral valve stenosis. There is a moderate amount of mitral regurgitation. The jet is an eccentric posteriorly directed jet of MR. Aortic Valve There is no aortic valvular vegetation. There is mild aortic stenosis. There is a peak gradient of 18 mm of Hg. No hemodynamically significant valvular aortic stenosis. There is no LVOT obstruction. There is a mild amount of aortic regurgitation. Tricuspid Valve There is no tricuspid stenosis. There is a mild amount of tricuspid regurgitation. There is mild pulmonary hypertension by echo. RVSP is 32 to 37 mm of Hg , with RA mean of 5 to 10. Pulmonic Valve There is no pulmonic valvular stenosis. There is a trace amount of pulmonic regurgitation. Great Vessels The aortic root is normal size. The inferior vena cava appeared normal and decreased > 50% with respiration (RAP 5-10 mmHg). Effusions There is no pericardial effusion. : PALLAVI DUCKWORTH > Paz Quiñonez
== END 2018-03-12 18:25 | disposition home or self-care (01) | DRG 189 ==
LOC: ER 13:22 → EH 16:41 → 4N 20:05 → 3N 03-11 02:34
PROVIDERS: ADMIT Internal Medicine; ATTEND Internal Medicine
DX: J81.0 Acute pulmonary edema (principal); I35.0 Nonrheumatic aortic (valve) stenosis; I25.10 Atherosclerotic heart disease of native coronary artery without angina pectoris; I10 Essential (primary) hypertension; E78.00 Pure hypercholesterolemia, unspecified; K21.9 Gastro-esophageal reflux disease without esophagitis; Z79.82 Long term (current) use of aspirin; Z79.899 Other long term (current) drug therapy
CPT/HCPCS: 36415; 36600; 71045; 71275; 72170; 80048; 80053; 80061; 80076; 80307; 81001; 82140; 82150; 82550; 82553; 82570; 82803; 83036; 83605; 83690; 83735; 83880; 84100; 84156; 84439; 84443; 84484; 85025; 85379; 85610; 85730; 87040; 87070; 87086; 87205; 87804; 93005; 93010; 93306; 96360; 99285; J0456; J0696; J1650; J1940; J3480

== ENCOUNTER 2018-03-13 11:57 | Observation (INO) | payer MEDICARE, BC, OTHER ==
--- NOTE | 2018-03-13 12:28 | ER Document Report ---
ED Medical Screen (RME) - General Chief Complaint: Back Pain Stated Complaint: BACK PAIN Time Seen by Provider: 03/13/18 12:13 Primary Care Provider: PALLAVI DUCKWORTH MD [Primary Care Provider] - Follow up as needed TRAVEL OUTSIDE OF THE [place] IN LAST 30 DAYS: No - HPI Notes: 03/13/18 12:28 Came in last week for lower body pain was admitted for pulmonary edema discharged returns today again for lower body pain - Related Data Allergies/Adverse Reactions: No Known Allergies Allergy (Verified 03/13/18 11:58) Past Medical History - Social History Chew tobacco use (# tins/day): No Frequency of alcohol use: None Drug Abuse: None - Past Medical History Cardiac Medical History: Reports: Hx Coronary Artery Disease, Hx Hypercholesterolemia, Hx Hypertension Denies: Hx Atrial Fibrillation, Hx Congestive Heart Failure, Hx Heart Attack - has stent placed, Hx Peripheral Vascular Disease, Hx Heart Murmur Pulmonary Medical History: Denies: Hx Asthma, Hx Bronchitis, Hx COPD, Hx Pneumonia, Hx Sleep Apnea Neurological Medical History: Denies: Hx Cerebrovascular Accident, Hx Seizures Endocrine Medical History: Denies: Hx Hyperthyroidism, Hx Hypothyroidism Renal/ Medical History: Denies: Hx Kidney Stones, Hx Peritoneal Dialysis GI Medical History: Reports: Hx Gastroesophageal Reflux Disease. Denies: Hx Crohn's Disease, Hx Hiatal Hernia, Hx Irritable Bowel, Hx Liver Failure, Hx Pancreatitis, Hx Ulcer Musculoskeltal Medical History: Reports Hx Arthritis, Denies Hx Fibromyalgia, Denies Hx Muscular Dystrophy Psychiatric Medical History: Reports: Hx Depression Denies: Hx Bipolar Disorder, Hx Post Traumatic Stress Disorder, Hx Schizophrenia Traumatic Medical History: Denies: Hx Fractures Past Surgical History: Reports: Hx Section - x2. Denies: Hx Appendectomy, Hx Bowel Surgery, Hx Cholecystectomy, Hx Colostomy, Hx Coronary Artery Bypass Graft, Hx Gastric Bypass Surgery, Hx Herniorrhaphy, Hx Hysterectomy, Hx Mastectomy, Hx Pacemaker, Hx Tonsillectomy, Hx Tubal Ligation - Immunizations History of Influenza Vaccine for 11/2016 - 04/2017 Season: Yes Influenza Administration Date for 11/2016 - 04/2017 Season: 11/09/17 Physical Exam - Vital signs Vitals: Temp Pulse Resp BP Pulse Ox 99.3 F 100 16 117/60 94 03/13/18 12:03 03/13/18 12:03 03/13/18 12:03 03/13/18 12:03 03/13/18 12:03 Course - Vital Signs Vital signs: Temp Pulse Resp BP Pulse Ox 99.3 F 100 16 117/60 94 03/13/18 12:03 03/13/18 12:03 03/13/18 12:03 03/13/18 12:03 03/13/18 12:03 Doctor's Discharge - Discharge Referrals: PALLAVI DUCKWORTH MD [Primary Care Provider] - Follow up as needed
[2018-03-13 13:17] LABS: ABSOLUTE BASOPHILS # (AUTO) 0.1 10^3/uL (0.0-0.2); ABSOLUTE EOSINOPHILS # (AUTO) 0.1 10^3/uL (0.0-0.6); ABSOLUTE LYMPHOCYTES (AUTO) 1.1 10^3/uL (0.5-4.7); ABSOLUTE MONOCYTES (AUTO) 0.4 10^3/uL (0.1-1.4); ABSOLUTE NEUT (AUTO) 9.2 10^3/uL (1.7-8.2); BASOPHILS % (AUTO) 0.7 % (0-2); EOSINOPHILS % (AUTO) 0.9 % (0-6); HEMATOCRIT 32.6 % (36.0-47.0); HEMOGLOBIN 10.9 g/dL (12.0-15.5); LYMPHOCYTES % (AUTO) 10.2 % (13-45); MEAN CORPUSCULAR HEMOGLOBIN 28.1 pg (27.0-33.4); MEAN CORPUSCULAR HGB CONC 33.3 g/dL (32.0-36.0); MEAN CORPUSCULAR VOLUME 84 fl (80-97); MONOCYTES % (AUTO) 3.9 % (3-13); PLATELET COUNT 362 10^3/uL (150-450); RED BLOOD COUNT 3.86 10^6/uL (3.72-5.28); RED CELL DISTRIBUTION WIDTH 14.7 % (11.5-14.0); SEGMENTED NEUTROPHILS % (AUTO) 84.3 % (42-78); TOTAL CELLS COUNTED % (AUTO) 100 %; WHITE BLOOD COUNT 10.9 10^3/uL (4.0-10.5)
[2018-03-13 13:25] LABS: APPEARANCE,URINE CLOUDY; BILIRUBIN,URINE NEGATIVE (NEGATIVE); COLOR,URINE AMBER; GLUCOSE, URINE NEGATIVE (NEGATIVE); KETONES,URINE NEGATIVE (NEGATIVE); LEUKOCYTE ESTERASE,URINE NEGATIVE (NEGATIVE); NITRITE,URINE NEGATIVE (NEGATIVE); PROTEIN,URINE 30 mg/dL (NEGATIVE); URINE SPECIFIC GRAVITY 1.019
[2018-03-13 13:31] LABS: ALANINE AMINOTRANSFERASE 65 U/L (9-52); ALBUMIN 3.7 g/dL (3.5-5.0); ALKALINE PHOSPHATASE 99 U/L (38-126); ANION GAP 11 (5-19); ASPARTATE AMINO TRANSFERASE 62 U/L (14-36); BILIRUBIN,DIRECT 0.2 mg/dL (0.0-0.4); BILIRUBIN,TOTAL 0.8 mg/dL (0.2-1.3); BLOOD UREA NITROGEN 17 mg/dL (7-20); CALCIUM 8.7 mg/dL (8.4-10.2); CARBON DIOXIDE 31 mmol/L (22-30); CHLORIDE 94 mmol/L (98-107); CREATINE KINASE 171 U/L (30-135); GLUCOSE 110 mg/dL (75-110); LIPASE 47.9 U/L (23-300); POTASSIUM 3.9 mmol/L (3.6-5.0); SODIUM 136.1 mmol/L (137-145); TOTAL PROTEIN 7.1 g/dL (6.3-8.2)
[2018-03-13] MEDS ORDERED: ACETAMINOPHEN 325 MG TABLET PO ONE (15:50)
--- NOTE | 2018-03-13 16:31 | RADIOLOGY REPORT (SQ) ---
EXAM DESCRIPTION: CT HEAD WITHOUT COMPLETED DATE/TIME: 03/13/2018 4:17 pm REASON FOR STUDY: confusion COMPARISON: None. TECHNIQUE: Axial images acquired through the brain without intravenous contrast. Images reviewed wi th bone, brain and subdural windows. Additional sagittal and coronal reconstructions were generated. Images stored on PACS. All CT scanners at this facility use dose modulation, iterative reconstruction, and/or weight based d osing when appropriate to reduce radiation dose to as low as reasonably achievable (ALARA). [facility]: Dose Right [facility]: CareDose [facility]: Dose Right [facility]: Teradose 4D [facility]: [employer] RADIATION DOSE: CT Rad equipment meets quality standard of care and radiation dose reduction techniq ues were employed. CTDIvol: 53.2 mGy. DLP: 1044 mGy-cm. mGy. LIMITATIONS: None. FINDINGS: VENTRICLES: Prominent. CEREBRUM: No masses. No hemorrhage. No midline shift. Areas of low density in the white matter mos t likely due to chronic micro-vascular ischemic change. No evidence for acute infarction. CEREBELLUM: No masses. No hemorrhage. No alteration of density. No evidence for acute infarction. EXTRAAXIAL SPACES: Mild age-related involutional change. No fluid collections. No masses. ORBITS AND GLOBE: No intra- or extraconal masses. Normal contour of globe without masses. CALVARIUM: No fracture. PARANASAL SINUSES: No fluid or mucosal thickening. SOFT TISSUES: No mass or hematoma. OTHER: No other significant finding. IMPRESSION: MILD CHRONIC CHANGES OF ATROPHY AND MICROVASCULAR ISCHEMIA. NO ACUTE PROCESS. EVIDENCE OF ACUTE STROKE: NO. TECHNICAL DOCUMENTATION: JOB ID: [id number] Quality ID # [id number]: Final reports with documentation of one or more dose reduction techniques (e.g., Au tomated exposure control, adjustment of the mA and/or kV according to patient size, use of iterative reconstruction technique) 2010 [employer]- All Rights Reserved Reading location - IP/workstation name: [email or web address]
--- NOTE | 2018-03-13 16:45 | ER Document Report ---
ED General - General Chief Complaint: Back Pain Stated Complaint: BACK PAIN Time Seen by Provider: 03/13/18 12:13 Mode of Arrival: Medic Information source: Patient, [facility] Records Notes: This is an 88-year-old female with a recent hospitalization (discharged yesterday) who presents with "groin, back, right leg pain". On exam, patient complains of pain to the lower back area, and pain radiating to the left lower extremity. Patient was recently presented to the hospital with fever and admitt ed for concerns of pneumonia. She was felt to ultimately have heart failure and was treated as such. She was discharged yesterday and was given tramadol for the above pain. Patient has had persistent pain. Additionally she notes that she is forgetting things and feels a little confused in the setting of taking the tramadol. Since daughter states that the patient has had known degenerative disease of the lower spine and it has been getting worse lately. She did have left hip surgery in January but continued to have the lower back pain. The patient reports she is having difficulty ambulating around her house. She does live alone. TRAVEL OUTSIDE OF THE [place] IN LAST 30 DAYS: No - HPI Onset: Last week Onset/Duration: Gradual Quality of pain: Dull Severity: Moderate Pain Level: 2 Associated symptoms: denies: Chest pain, Shortness of breath Exacerbated by: Movement Relieved by: Remaining still Similar symptoms previously: Yes Recently seen / treated by doctor: Yes - Related Data Allergies/Adverse Reactions: No Known Allergies Allergy (Verified 03/13/18 11:58) Past Medical History - General Information source: Patient - Social History Smoking Status: Never Smoker Cigarette use (# per day): No Chew tobacco use (# tins/day): No Frequency of alcohol use: None Drug Abuse: None Lives with: Alone Family History: Reviewed & Not Pertinent Patient has suicidal ideation: No Patient has homicidal ideation: No - Past Medical History Cardiac Medical History: Reports: Hx Coronary Artery Disease, Hx Hyperchol esterolemia, Hx Hypertension Denies: Hx Atrial Fibrillation, Hx Congestive Heart Failure, Hx Heart Attack - has stent placed, Hx Peripheral Vascular Disease, Hx Heart Murmur Pulmonary Medical History: Denies: Hx Asthma, Hx Bronchitis, Hx COPD, Hx Pneumonia, Hx Sleep Apnea Neurological Medical History: Denies: Hx Cerebrovascular Accident, Hx Seizures Endocrine Medical History: Denies: Hx Hyperthyroidism, Hx Hypothyroidism Renal/ Medical History: Denies: Hx Kidney Stones, Hx Peritoneal Dialysis GI Medical History: Reports: Hx Gastroesophageal Reflux Disease. Denies: Hx Crohn's Disease, Hx Hiatal Hernia, Hx Irritable Bowel, Hx Liver Failure, Hx Pancreatitis, Hx Ulcer Musculoskeletal Medical History: Reports Hx Arthritis, Denies Hx Fibromyalgia, Denies Hx Muscular Dystrophy Psychiatric Medical History: Reports: Hx Depression Denies: Hx Bipolar Disorder, Hx Post Traumatic Stress Disorder, Hx Schizophrenia Traumatic Medical History: Denies: Hx Fractures Past Surgical History: Reports: Hx Section - x2. Denies: Hx Appendectomy, Hx Bowel Surgery, Hx Cholecystectomy, Hx Colostomy, Hx Coronary Artery Bypass Graft, Hx Gastric Bypass Surgery, Hx Herniorrhaphy, Hx Hysterectomy, Hx Mastectomy, Hx Pacemaker, Hx Tonsillectomy, Hx Tubal Ligation Review of Systems - Review of Systems Constitutional: Fever - She reports fever last week, Weakness EENT: No symptoms reported Cardiovascular: No symptoms reported. denies: Chest pain, Palpitations, Heart racing Respiratory: denies: Cough, Short of breath, Wheezing Gastrointestinal: denies: Abdomen distended, Abdominal pain, Diarrhea Genitourinary: No symptoms reported Female Genitourinary: No symptoms reported Musculoskeletal: See HPI Skin: No symptoms reported Hematologic/Lymphatic: No symptoms reported Neurological/Psychological: Weakness. denies: Paralysis, Speech impairment Physical Exam - Vital signs Vitals: Temp Pulse Resp BP Pulse Ox 99.3 F 100 16 117/60 94 03/13/18 12:03 03/13/18 12:03 03/13/18 12:03 03/13/18 12:03 03/13/18 12:03 Notes: Physical exam: GENERAL: 88-year-old male, alert, answering questions, no acute distress HEAD: Atraumatic, normocephalic. EYES: Pupils equal round and reactive to light, extraocular movements intact, sclera anicteric, conjunctiva are normal. ENT: TMs normal, nares patent, oropharynx clear without exudates. Moist mucous membranes. NECK: Normal range of motion, supple without obvious mass or JVD. LUNGS: Breath sounds clear to auscultation bilaterally and equal. No wheezes rales or rhonchi. HEART: Regular rate and rhythm without murmurs, rubs or gallops. ABDOMEN: Soft, normoactive bowel sounds. No tenderness to palpation. No guarding, no rebound. No masses appreciated. Back: Patient does have lumbar sacral tenderness to palpation without obvious step-off fractures. Station to the perineal area is intact. Incision to the lower extremities and intact. EXTREMITIES: Normal range of motion, no pitting or edema. No clubbing or cyanosis. Has a good dorsal pedal pulse on the right. She is got good capillary refill on the right. Patient has a very good posterior tibial pulse on the left and good cap refill on the left. NEUROLOGICAL: Cranial nerves II through XII grossly intact. Normal speech, moving all extremities. PSYCH: Normal mood, normal affect. SKIN: Warm, Dry, normal turgor, no rashes or lesions noted. Course - Re-evaluation Re-evalutation: 03/13/18 21:35 Note: We did try and walk the patient, she is having a very difficult time ambulating. Given ambulatory dysfunction and the acute fracture seen on we will admit her for pain control as well as physical therapy. We have to be careful with the pain control because she is getting confused with the tramadol. As far as her oxygen saturations. The waveform has been variable. She has not had any shortness of breath. If I sit in the room with her and have her breathing it out and if I wait for a waveform, the O2 sat goes into the 96% range on room air. Her lungs are clear at this time. - Vital Signs Vital signs: Temp Pulse Resp BP Pulse Ox 98.1 F 87 14 123/52 L 97 03/13/18 19:00 03/13/18 19:00 03/13/18 19:00 03/13/18 19:00 03/13/18 19:04 - Laboratory Result Diagrams: 03/13/18 12:49 03/13/18 12:49 Laboratory results interpreted by me: 03/13/18 03/13/18 03/13/18 12:49 12:49 12:49 WBC 10.9 H Hgb 10.9 L Hct 32.6 L RDW 14.7 H Seg Neutrophils % 84.3 H Lymphocytes % 10.2 L Absolute Neutrophils 9.2 H ESR Sodium 136.1 L Chloride 94 L Carbon Dioxide 31 H AST 62 H ALT 65 H Creatine Kinase 171 H Urine Protein 30 H Urine Blood MODERATE H Urine Urobilinogen 4.0 H 03/13/18 12:49 WBC Hgb Hct RDW Seg Neutrophils % Lymphocytes % Absolute Neutrophils ESR 97 H Sodium Chloride Carbon Dioxide AST ALT Creatine Kinase Urine Protein Urine Blood Urine Urobilinogen - Diagnostic Test Radiology reviewed: Image reviewed, Reports reviewed - MRI shows an acute fracture of S2 along with significant degenerative disease of the lumbar spine. Discharge - Discharge Clinical Impression: Acute fracture S2, Ambulatory dysfunction Condition: Stable Disposition: ADMITTED OBSERVATION Admitting Provider: Gallito Moran covering Unit Admitted: Medical Floor
--- NOTE | 2018-03-13 16:55 | RADIOLOGY REPORT (SQ) ---
EXAM DESCRIPTION: CT PELVIS WITHOUT COMPLETED DATE/TIME: 03/13/2018 4:17 pm REASON FOR STUDY: left grin pain COMPARISON: None. TECHNIQUE: CT scan of the pelvis performed without intravenous or oral contrast. Images reviewed wi th soft tissue and bone windows. Reconstructed coronal and sagittal MPR images reviewed. All images stored on PACS. All CT scanners at this facility use dose modulation, iterative reconstruction, and/or weight based d osing when appropriate to reduce radiation dose to as low as reasonably achievable (ALARA). [facility]: Dose Right [facility]: CareDose [facility]: Dose Right [facility]: Teradose 4D [facility]: [employer] RADIATION DOSE: CT Rad equipment meets quality standard of care and radiation dose reduction techniq ues were employed. CTDIvol: 5.9 mGy. DLP: 226 mGy-cm. mGy. LIMITATIONS: None. FINDINGS: PELVIC BONES: No acute fracture. No worrisome bone lesions. VISUALIZED SPINE: Marked degenerative disc disease. Lateral subluxation of L3 on L4. HIP(S): Left total hip replacement intact. No finding in the right hip. PELVIC SOFT TISSUES: No significant findings. EXTRAPELVIC SOFT TISSUES: No significant findings. OTHER: No other significant finding. IMPRESSION: No acute findings. TECHNICAL DOCUMENTATION: JOB ID: [id number] Quality ID # [id number]: Final reports with documentation of one or more dose reduction techniques (e.g., Au tomated exposure control, adjustment of the mA and/or kV according to patient size, use of iterative reconstruction technique) 2010 [employer]- All Rights Reserved Reading location - IP/workstation name: [email or web address]
[2018-03-13] MEDS ORDERED: DIAZEPAM 5 MG TABLET PO ONE (17:10)
--- NOTE | 2018-03-13 19:42 | RADIOLOGY REPORT (SQ) ---
EXAM DESCRIPTION: MRI LUMBAR SPINE COMBO COMPLETED DATE/TIME: 03/13/2018 6:48 pm REASON FOR STUDY: persistent low back pain, recent fever COMPARISON: MR lumbar spine, 03/09/2017 TECHNIQUE: Sagittal and Axial imaging includes T1, T1 post gadolinium, T2, STIR and gradient echo se quences. Coronal T2/HASTE imaging. CONTRAST TYPE AND DOSE: 10 mL Dotarem. RENAL FUNCTION: GFR > 60. LIMITATIONS: None. FINDINGS: VISUALIZED UPPER ABDOMEN: Limited evaluation. No acute or suspicious findings suggested. SEGMENTATION: No transitional anatomy. The lowest well-developed disc space is labeled L5-S1. ALIGNMENT: Levoscoliosis of the lumbar spine with severe associated disc degenerative disease, asymme trically severe on the right. VERTEBRAE: Intact. No fractures. BONE MARROW: There is a subtle fracture of the anterior cortex of the S2 segment with associated allison ow edema (series 500, image 7). DISC SIGNAL: Severe multilevel disc degenerative disease with disc bulges. POSTERIOR ELEMENTS: Generally intact. No pars defect evident. CENTRAL CANAL: There is severe central lumbar canal and bilateral lateral recess stenosis at L3-L4 s econdary to disc bulge, degenerative anterolisthesis, and facet hypertrophy. Minimum AP diameter at this level 4 mm with near total effacement of the bilateral lateral recesses and severe right neural foraminal stenosis. Additional severe right neural foraminal stenosis at L2-L3. Additional severe b ilateral lateral recess stenosis at L4-L5. HARDWARE: None in the spine. CORD AND CONUS: Normal cord and conus. SOFT TISSUES: No aortic aneurysm seen. No bulky retroperitoneal adenopathy or mass. No paraspinal mas s or fluid. LOWER THORACIC: Incompletely imaged. No stenosis seen. ENHANCEMENT: No abnormal enhancement. OTHER: No other significant findings. IMPRESSION: 1. Subtle acute fracture of the anterior cortex of the S2 segment with associated marro w edema. 2. No evidence of discitis osteomyelitis. 3. 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 Minimum AP diameter 4 mm w ith near total effacement of the bilateral lateral recesses. Correlate for referable symptoms. Ther e is additional severe right side neural foraminal stenosis at L2-L3 and L3-L4 and severe bilateral l ateral recess stenosis at L4-L5. TECHNICAL DOCUMENTATION: JOB ID: [id number] [employer]- All Rights Reserved Reading location - IP/workstation name: [email or web address]
[2018-03-13] MEDS ORDERED: ACETAMINOPHEN 325 MG TABLET PO PRN (22:58)
[2018-03-14] MEDS: OXYCODONE-ACETAMINOPHEN 5-325 MG TABLET PO PRN ×2 (12:04→17:07)
[2018-03-14] MEDS ORDERED: ZOLPIDEM TARTRATE 5 MG TABLET PO PRN (18:30)
[2018-03-14] MEDS ORDERED: (PENDING PHARMACY ID) (Vortioxetine Hydrobromide [Trintellix] 10 MG) PO SCH (18:30)
--- NOTE | 2018-03-14 19:17 | PDOC H&P ---
History of Present Illness Admission Date/PCP: 03/13/18 21:17 PALLAVI DUCKWORTH MD History of Present Illness: GILBERT TEIXEIRA is a 88 year old female patient of Dr. Duckworth who was recently discharge from this hospital. She reported increase pain in her hip joint despite use of her prescribed Tramadol upon discharged. She presented to the ED due to worsening pain and difficulty with ambulation. Patient daughter reported associated confusion. She reported lower back pain with radiation of pain into her left lower extremity and buttock. She denied any recent fall or injury. Daughter reported history of spinal degenerative disease and recent left hip arthroplasty surgery. Daughter reported difficulty with ambulation at home. There was expressed concern about her recent worsening confusion and living alone. Her comorbidities include Hypertension, Hyperlipidemia, Coronary Artery Disease, COPD, Gastroesophageal Reflux Disease, osteoarthritis, and depression. Past Medical History Cardiac Medical History: Reports: Coronary Artery Disease, Hyperlipidema, Hypertension Denies: Atrial Fibrillation, Congestive Heart Failure, Myocardial Infarction - has stent placed, Peripheral Vascular Disease, Heart Murmur Pulmonary Medical History: Denies: Asthma, Bronchitis, Chronic Obstructive Pulmonary Disease (COPD), Pneumonia, Sleep Apnea Neurological Medical History: Denies: Seizures Endocrine Medical History: Denies: Hyperthyroidism, Hypothyroidism GI Medical History: Reports: Gastroesophageal Reflux Disease Denies: Crohn's Disease, Hiatal Hernia Musculoskeltal Medical History: Reports: Arthritis Denies: Fibromyalgia Psychiatric Medical History: Reports: Depression Denies: Bipolar Disorder, Post Traumatic Stress Disorder Hematology: Denies: Anemia Past Surgical History Past Surgical History: Reports: Section - x2 Denies: Amputation, Appendectomy, Cholecystectomy, Colostomy, Coronary Artery Bypass Graft, Gastric Bypass Surgery, Herniorrhaphy, Hysterectomy, Mastectomy, Pacemaker, Tonsillectomy, Tubal Ligation Social History Lives with: Alone Smoking Status: Never Smoker Frequency of Alcohol Use: None Hx Recreational Drug Use: No Drugs: None Hx Prescription Drug Abuse: No Family History Family History: Reviewed & Not Pertinent Parental Family History Reviewed: Yes Children Family History Reviewed: Yes Sibling(s) Family History Reviewed.: Yes Medication/Allergy Home Medications: Aspirin [Ecotrin 81 mg EC Tablet] 81 mg PO DAILY 03/14/18 Ibuprofen [Motrin 800 mg Tablet] 800 mg PO Q8HP PRN 03/14/18 Lisinopril [Prinivil 40 mg Tablet] 40 mg PO DAILY 03/14/18 Simvastatin [Zocor 20 mg Tablet] 20 mg PO QHS 03/14/18 Tramadol HCl [Ultram 50 mg Tablet] 50 mg PO Q6HP PRN 03/14/18 Vortioxetine Hydrobromide [Brintellix] 10 mg PO Q2D 03/14/18 Zolpidem Tartrate [Ambien 5 mg Tablet] 2.5 mg PO HSP PRN 03/14/18 Allergies/Adverse Reactions: No Known Allergies Allergy (Verified 03/13/18 11:58) Review of Systems Constitutional: ABSENT: chills, fever(s), headache(s), weight gain, weight loss Eyes: ABSENT: visual disturbances Ears: PRESENT: hearing changes Nose, Mouth, and Throat: ABSENT: headache(s), vertigo Cardiovascular: ABSENT: chest pain, dyspnea on exertion, edema, orthropnea, palpitations Respiratory: ABSENT: cough, hemoptysis Gastrointestinal: ABSENT: abdominal pain, constipation, diarrhea, hematemesis, hematochezia, nausea, vomiting Genitourinary: ABSENT: dysuria, hematuria Musculoskeletal: PRESENT: back pain Integumentary: ABSENT: rash, wounds Neurological: PRESENT: confusion Psychiatric: ABSENT: anxiety, depression, homidical ideation, suicidal ideation Endocrine: ABSENT: cold intolerance, heat intolerance, polydipsia, polyuria Hematologic/Lymphatic: ABSENT: easy bleeding, easy bruising, lymphadenopathy Allergic/Immunologic: ABSENT: seasonal rhinorrhea Physical Exam Vital Signs: Temp Pulse Resp BP Pulse Ox 98.5 F 88 18 108/87 H 99 03/14/18 16:00 03/14/18 16:00 03/14/18 16:00 03/14/18 16:00 03/14/18 16:00 Intake & Output 03/13/18 03/14/18 03/15/18 06:59 06:59 06:59 Intake Total 200 474 Balance 200 474 Weight 56.2 kg General appearance: PRESENT: no acute distress, well-developed, well-nourished Head exam: PRESENT: atraumatic, normocephalic Eye exam: PRESENT: conjunctiva pink, EOMI, PERRLA. ABSENT: scleral icterus Ear exam: PRESENT: normal external ear exam Mouth exam: PRESENT: moist Respiratory exam: PRESENT: clear to auscultation jadon Cardiovascular exam: PRESENT: RRR. ABSENT: diastolic murmur, rubs, systolic murmur Vascular exam: ABSENT: pallor GI/Abdominal exam: PRESENT: normal bowel sounds, soft. ABSENT: distended, guarding, mass, organolmegaly, rebound, tenderness Rectal exam: PRESENT: deferred Extremities exam: PRESENT: tenderness - lower lumbar region to palpation and movement. ABSENT: pedal edema Musculoskeletal exam: PRESENT: deformity - related to multiple joints involvement with arthritis Neurological exam: PRESENT: alert, awake, oriented to person, oriented to place, oriented to time, oriented to situation, CN II-XII grossly intact. ABSENT: motor sensory deficit Psychiatric exam: PRESENT: appropriate affect, normal mood. ABSENT: homicidal ideation, suicidal ideation Skin exam: PRESENT: dry, warm Results Laboratory Results: 03/13/18 12:49 03/13/18 12:49 03/13/18 12:49 Creatine Kinase 171 H Impressions: Head CT 03/13/18 15:30 IMPRESSION: MILD CHRONIC CHANGES OF ATROPHY AND MICROVASCULAR ISCHEMIA. NO ACUTE PROCESS. EVIDENCE OF ACUTE STROKE: NO. Pelvis CT 03/13/18 15:31 IMPRESSION: No acute findings. Lumbar Spine MRI 03/13/18 16:32 IMPRESSION: 1. Subtle acute fracture of the anterior cortex of the S2 segment with associated marrow edema. 2. No evidence of discitis osteomyelitis. 3. Severe multilevel disc and facet degenerative disease of the lumbar spine associated with dextroscoliosis, notable for severe central lumbar canal and bilateral lateral recess stenosis at L3-L4 secondary to disc bulge, degenerative anterolisthesis, and facet hypertrophy. Minimum AP diameter 4 mm with near total effacement of the bilateral lateral recesses. Correlate for referable symptoms. There is additional severe right side neural foraminal stenosis at L 2-L3 and L3-L4 and severe bilateral lateral recess stenosis at L4-L5. Assessment & Plan - Diagnosis (1) Closed sacral fracture Qualifiers: Encounter type: initial encounter Zone of sacrum fracture: unspecified portion of sacrum Qualified Code(s): S32.10XA - Unspecified fracture of sacrum, initial encounter for closed fracture Is this a current diagnosis for this admission?: Yes Plan: Patient will be admitted to observation bed due to reported ambulatory difficulty by ED physician. Start on oral pain management with bed rest. Physical therapy assessment for ambulatory safety. (2) DDD (degenerative disc disease), lumbosacral Is this a current diagnosis for this admission?: Yes Plan: Continue pain management and physical therapy intervention. (3) DJD (degenerative joint disease), lumbosacral Is this a current diagnosis for this admission?: Yes Plan: Continue pain management and physical therapy intervention. - Time Time Spent: 50 to 70 Minutes Medications reviewed and adjusted accordingly: Yes Anticipated discharge: Home with Homehealth Within: Other - Inpatient Certification Post Hospital Care: D/C Manager [employer] Documentation - Plan Summary Plan Summary: Continue her preadmission medication management except Tramadol.
[2018-03-14] MEDS ORDERED: MAG HYDROX/AL HYDROX/SIMETH SUSP 30 ML UDCUP PO PRN (19:18)
[2018-03-14] MEDS ORDERED: SIMVASTATIN 10 MG TABLET PO SCH (22:00)
[2018-03-15] MEDS: OXYCODONE-ACETAMINOPHEN 5-325 MG TABLET PO PRN ×3 (00:12→14:05)
--- NOTE | 2018-03-15 08:17 | Physician Advisory Note ---
Physician Advisor ProgressNote .: Pursuant to the plan for Demian Chamberlain, I have reviewed the medical record for this patient. Physician Advisor Statement: Please consider documenting, if you agree: 1. "Adverse effect of tramadol causing " - vs this was ruled out 2. Are the low O2 sats [of 82% RA, 92% on 2L (P/F ratio 271), 87% on RA, 92% on 1L (P/F ratio 288)] concerning to attg this stay enough to eval &/or tx, or felt to be baseline for pt? - Has she had evidence of increased work of breathing in association with acute hypoxemia that would support dx of "Acute Resp Failure", or not? 3. "Chronic diastolic CHF w/mod MR & mild pulmonary HTN" (per ECHO last week) - or was any of this ruled out? - or could she be developing "Acute on chronic diast CHF w/mod MR & mild pulm HTN"? Status: Approp'ly Obs for acute S2 fx not requiring surgery. Medicare pt, stayed 2nd [place] last pm, but from what is documented, it appears she has simply been kept for nursing home care while awaiting PT eval; the delay in PT eval will be considered "delay of care", a reason for which Medicare will not agree to Inpatient conversion. If she is felt to need SNF rehab, this is not a reason to convert to Inpatient status without a clinical reason for Inpt conversion. - However, if she develops a new acute issue besides the ambulatory dysfunction/S2 fx & confusion/forgetfulness on tramadol, and attg documents it with what is being done about it that requires an extra night of hospital care, she may qualify for conversion to Inpatient status. Thanks! CK
[2018-03-15] MEDS ORDERED: ASPIRIN 81 MG TABLET, ENT COATED PO SCH (10:00)
[2018-03-15] MEDS ORDERED: LISINOPRIL 10 MG TABLET PO SCH (10:00)
--- NOTE | 2018-03-15 13:06 | PDOC DISCHARGE SUMMARY ---
General - Admit/Disc Date/PCP Admission Date/Primary Care Provider: 03/13/18 21:17 PALLAVI DUCKWORTH MD Discharge Date: 03/15/18 - Discharge Diagnosis (1) Closed sacral fracture Is this a current diagnosis for this admission?: Yes (2) DDD (degenerative disc disease), lumbosacral Is this a current diagnosis for this admission?: Yes (3) DJD (degenerative joint disease), lumbosacral Is this a current diagnosis for this admission?: Yes - Additional Information Prescriptions: Oxycodone HCl/Acetaminophen [Percocet 5-325 mg Tablet] 1 tab PO Q4HP PRN #60 tablet PRN Reason: Home Medications: Aspirin [Ecotrin 81 mg EC Tablet] 81 mg PO DAILY 03/14/18 Lisinopril [Prinivil 40 mg Tablet] 40 mg PO DAILY 03/14/18 Simvastatin [Zocor 20 mg Tablet] 20 mg PO QHS 03/14/18 Vortioxetine Hydrobromide [Trintellix] 10 mg PO Q2D 03/14/18 Zolpidem Tartrate [Ambien 5 mg Tablet] 2.5 mg PO HSP PRN 03/14/18 Oxycodone HCl/Acetaminophen [Percocet 5-325 mg Tablet] 1 tab PO Q4HP PRN #60 tablet 03/15/18 History of Present Illness Patient complains of: Worsening pain and difficulty with ambulation History of Present Illness: GILBERT TEIXEIRA is a 88 year old female patient of Dr. Duckworth who was recently discharge from this hospital. She reported increase pain in her hip joint despite use of her prescribed Tramadol upon discharged. She presented to the ED due to worsening pain and difficulty with ambulation. Patient daughter reported associated confusion. She reported lower back pain with radiation of pain into her left lower extremity and buttock. She denied any recent fall or injury. Daughter reported history of spinal degenerative disease and recent left hip arthroplasty surgery. Daughter reported difficulty with ambulation at home. There was expressed concern about her recent worsening confusion and living alone. Her comorbidities include Hypertension, Hyperlipidemia, Coronary Artery Disease, COPD, GERD, osteoarthritis, and depression. Hospital Course Hospital Course: Patient dramatically responded well to Percocet for pain management. She participated in physical therapy evaluation and ambulate safely with walker assistance. She is severely hearing impaired and do not response appropriately to conversation until it is repeated two or three times. Her tramadol usage did not contribute to her confusion state, probably her baseline. She will be discharge home today on Percocet 5/325 mg p.o q6 hours prn for pain management. She was instructed to avoid lifting any heavy object more than 5 lbs and use walker for ambulatory assistance. Se will follow up with Dr Duckworth on 03/19/2018 as earlier arranged. Physical Exam Vital Signs: Temp Pulse Resp BP Pulse Ox 98.1 F 98 16 132/77 H 93 03/15/18 07:25 03/15/18 07:25 03/15/18 07:25 03/15/18 07:25 03/15/18 07:25 Intake & Output 03/14/18 03/15/18 03/16/18 06:59 06:59 06:59 Intake Total 200 774 Output Total 800 Balance 200 -26 Weight 56.2 kg 56 kg General appearance: PRESENT: no acute distress Head exam: PRESENT: atraumatic, normocephalic Ear exam: PRESENT: normal external ear exam, other - hearing impaired Mouth exam: PRESENT: moist Respiratory exam: PRESENT: clear to auscultation jadon Cardiovascular exam: PRESENT: RRR. ABSENT: diastolic murmur, rubs, systolic murmur Vascular exam: ABSENT: pallor GI/Abdominal exam: PRESENT: normal bowel sounds, soft. ABSENT: distended, guarding, mass, organolmegaly, rebound, tenderness Extremities exam: ABSENT: pedal edema Musculoskeletal exam: PRESENT: ambulatory - with walker assistance, tenderness - lumosacral region to palpation and movement Neurological exam: PRESENT: alert, awake, oriented to person, oriented to place, oriented to time, oriented to situation, CN II-XII grossly intact. ABSENT: motor sensory deficit Psychiatric exam: PRESENT: appropriate affect, normal mood. ABSENT: homicidal ideation, suicidal ideation Skin exam: PRESENT: dry, warm Results Laboratory Results: 03/13/18 12:49 03/13/18 12:49 03/13/18 12:49 Creatine Kinase 171 H Impressions: Head CT 03/13/18 15:30 IMPRESSION: MILD CHRONIC CHANGES OF ATROPHY AND MICROVASCULAR ISCHEMIA. NO ACUTE PROCESS. EVIDENCE OF ACUTE STROKE: NO. Pelvis CT 03/13/18 15:31 IMPRESSION: No acute findings. Lumbar Spine MRI 03/13/18 16:32 IMPRESSION: 1. Subtle acute fracture of the anterior cortex of the S2 segment with associated marrow edema. 2. No evidence of discitis osteomyelitis. 3. Severe multilevel disc and facet degenerative disease of the lumbar spine associated with dextroscoliosis, notable for severe central lumbar canal and bilateral lateral recess stenosis at L3-L4 secondary to disc bulge, degenerative anterolisthesis, and facet hypertrophy. Minimum AP diameter 4 mm with near total effacement of the bilateral lateral recesses. Correlate for referable symptoms. There is additional severe right side neural foraminal stenosis at L2-L3 and L3-L4 and severe bilateral lateral recess stenosis at L4-L5. Qualifiers - * PATIENT BEING DISCHARGED WITH ANY OF THE FOLLOWING DIAGNOSIS: No Plan Discharge Plan: D/C home today with follow up at Dr. Duckworth's office on 03/19/2018.
[2018-03-15 14:49] VITALS: BP 158/65
== END 2018-03-15 15:09 | disposition home or self-care (01) ==
LOC: ER 11:57 → INTOOBSV 21:17 → EH 21:17 → 3W 03-14 00:14
PROVIDERS: ADMIT Internal Medicine; ATTEND Internal Medicine
DX: S32.10XA Unspecified fracture of sacrum, initial encounter for closed fracture (principal); X58.XXXA Exposure to other specified factors, initial encounter; M51.37 Other intervertebral disc degeneration, lumbosacral region; R41.0 Disorientation, unspecified; T40.4X5A Adverse effect of other synthetic narcotics, initial encounter; R26.2 Difficulty in walking, not elsewhere classified; I25.10 Atherosclerotic heart disease of native coronary artery without angina pectoris; I10 Essential (primary) hypertension; E78.5 Hyperlipidemia, unspecified; J44.9 Chronic obstructive pulmonary disease, unspecified; K21.9 Gastro-esophageal reflux disease without esophagitis; M19.90 Unspecified osteoarthritis, unspecified site; M62.81 Muscle weakness (generalized); F32.9 Major depressive disorder, single episode, unspecified; Z79.82 Long term (current) use of aspirin; Z79.899 Other long term (current) drug therapy; Z96.642 Presence of left artificial hip joint; Z60.2 Problems related to living alone
CPT/HCPCS: 99285; 36415; 87086; 82550; 83690; 85025; 85652; 87088; 80053; 81001; 87186; 72158; 70450; 72192; 97110; 97116; 97163; G0378 ×2; A9576; A9270 ×7

== ENCOUNTER 2018-05-25 13:44 | Emergency (ER) | payer MEDICARE, BC ==
[2018-05-25] MEDS ORDERED: ONDANSETRON HCL INJ/PF 4 MG/2 ML SDV IV ONE (14:10)
[2018-05-25 14:24] LABS: ABSOLUTE LYMPHOCYTES (AUTO) 0.6 10^3/uL (0.5-4.7); ABSOLUTE MONOCYTES (AUTO) 0.1 10^3/uL (0.1-1.4); BASOPHILS % (AUTO) 0.6 % (0-2); EOSINOPHILS % (AUTO) 0.1 % (0-6); HEMATOCRIT 40.2 % (36.0-47.0); HEMOGLOBIN 13.4 g/dL (12.0-15.5); MEAN CORPUSCULAR HGB CONC 33.4 g/dL (32.0-36.0); MEAN CORPUSCULAR VOLUME 84 fl (80-97); MONOCYTES % (AUTO) 2.8 % (3-13); PLATELET COUNT 202 10^3/uL (150-450); RED CELL DISTRIBUTION WIDTH 17.1 % (11.5-14.0); SEGMENTED NEUTROPHILS % (AUTO) 83.5 % (42-78); TOTAL CELLS COUNTED % (AUTO) 100 %; WHITE BLOOD COUNT 4.8 10^3/uL (4.0-10.5)
[2018-05-25 14:41] LABS: ALANINE AMINOTRANSFERASE 42 U/L (9-52); ALBUMIN 4.6 g/dL (3.5-5.0); ALKALINE PHOSPHATASE 114 U/L (38-126); ANION GAP 11 (5-19); ASPARTATE AMINO TRANSFERASE 34 U/L (14-36); BILIRUBIN,DIRECT 0.4 mg/dL (0.0-0.4); BILIRUBIN,TOTAL 0.9 mg/dL (0.2-1.3); BLOOD UREA NITROGEN 13 mg/dL (7-20); CALCIUM 9.6 mg/dL (8.4-10.2); CARBON DIOXIDE 28 mmol/L (22-30); CHLORIDE 96 mmol/L (98-107); CREATINE KINASE 48 U/L (30-135); GLUCOSE 139 mg/dL (75-110); POTASSIUM 3.4 mmol/L (3.6-5.0); SODIUM 134.6 mmol/L (137-145); TOTAL PROTEIN 8.6 g/dL (6.3-8.2)
--- NOTE | 2018-05-25 14:46 | RADIOLOGY REPORT (SQ) ---
EXAM DESCRIPTION: CHEST SINGLE VIEW COMPLETED DATE/TIME: 05/25/2018 2:39 pm REASON FOR STUDY: Nausea and vomiting COMPARISON: 03/10/2018 NUMBER OF VIEWS: One view. TECHNIQUE: Single frontal radiographic image of the chest acquired. LIMITATIONS: None. FINDINGS: LUNGS AND PLEURA: Stable appearance. MEDIASTINUM AND HILAR STRUCTURES: Stable heart size and mediastinal structures. HEART AND VASCULAR STRUCTURES: Stable appearance. SUPPORT DEVICES: Appropriate location without change. BONES: No acute findings. OTHER: No other significant finding. IMPRESSION: STABLE APPEARANCE OF THE CHEST. SUPPORT DEVICES UNCHANGED. TECHNICAL DOCUMENTATION: JOB ID: [id number] [employer]- All Rights Reserved Reading location - IP/workstation name: [email or web address]
[2018-05-25 14:53] LABS: CREATINE KINASE MB 1.57 ng/mL (<4.55)
[2018-05-25 14:55] LABS: TROPONIN I < 0.012 ng/mL
[2018-05-25 14:57] LABS: APPEARANCE,URINE SLIGHTLY-CLOUDY; BILIRUBIN,URINE NEGATIVE (NEGATIVE); COLOR,URINE YELLOW; GLUCOSE, URINE 50 mg/dL (NEGATIVE); KETONES,URINE 20 mg/dL (NEGATIVE); LEUKOCYTE ESTERASE,URINE NEGATIVE (NEGATIVE); NITRITE,URINE NEGATIVE (NEGATIVE); PROTEIN,URINE 100 mg/dL (NEGATIVE); URINE SPECIFIC GRAVITY 1.011; UROBILINOGEN,URINE NEGATIVE mg/dL (<2.0)
[2018-05-25] MEDS ORDERED: MORPHINE SULFATE 10 MG/ML INJ IV ONE (16:28)
--- NOTE | 2018-05-25 18:34 | RADIOLOGY REPORT (SQ) ---
EXAM DESCRIPTION: CT HEAD WITHOUT COMPLETED DATE/TIME: 05/25/2018 6:24 pm REASON FOR STUDY: Headache with nausea and vomiting COMPARISON: 03/13/2018 TECHNIQUE: Axial images acquired through the brain without intravenous contrast. Images reviewed wi th bone, brain and subdural windows. Additional sagittal and coronal reconstructions were generated. Images stored on PACS. All CT scanners at this facility use dose modulation, iterative reconstruction, and/or weight based d osing when appropriate to reduce radiation dose to as low as reasonably achievable (ALARA). [facility]: Dose Right [facility]: CareDose [facility]: Dose Right [facility]: Teradose 4D [facility]: [employer] RADIATION DOSE: CT Rad equipment meets quality standard of care and radiation dose reduction techniq ues were employed. CTDIvol: 23.9 mGy. DLP: 469 mGy-cm. mGy. LIMITATIONS: None. FINDINGS: VENTRICLES: Normal size and contour. CEREBRUM: No masses. No hemorrhage. No midline shift. No evidence for acute infarction. Few scatte red areas of low density in the white matter most likely chronic small vessel ischemic changes. CEREBELLUM: No masses. No hemorrhage. No alteration of density. No evidence for acute infarction. EXTRAAXIAL SPACES: No fluid collections. No masses. ORBITS AND GLOBE: No intra- or extraconal masses. Normal contour of globe without masses. CALVARIUM: No fracture. PARANASAL SINUSES: No fluid or mucosal thickening. SOFT TISSUES: No mass or hematoma. OTHER: No other significant finding. IMPRESSION: MILD CHRONIC MICROVASCULAR ISCHEMIA. NO ACUTE IMAGING FINDINGS IN THE BRAIN. EVIDENCE OF ACUTE STROKE: NO. COMMENT: Quality ID # [id number]: Final reports with documentation of one or more dose reduction techniques (e.g., Automated exposure control, adjustment of the mA and/or kV according to patient size, use of iterative reconstruction technique) TECHNICAL DOCUMENTATION: JOB ID: [id number] [employer]- All Rights Reserved Reading location - IP/workstation name: [email or web address]
[2018-05-25] MEDS ORDERED: LISINOPRIL 10 MG TABLET PO ONE (19:12)
[2018-05-25] MEDS ORDERED: HYDRALAZINE HCL INJ/PF 20 MG/1 ML SDV IV ONE ×2 (19:12→19:21)
[2018-05-25] MEDS ORDERED: DEXTROSE 5%-LACTATED RINGERS 500 ML IV ONE (19:13)
--- NOTE | 2018-05-25 19:19 | ER Document Report ---
Entered by JAD HICKS SCRIBE 05/25/18 5045 Acting as scribe for:JC MONET MD ED GI/ - General Chief Complaint: Nausea/Vomiting Stated Complaint: NAUSEA/VOMITING Time Seen by Provider: 05/25/18 14:02 Primary Care Provider: PALLAVI DUCKWORTH MD [Primary Care Provider] - Follow up as needed Mode of Arrival: Ambulatory Information source: Patient Notes: 88-year-old female who presents to the emergency department today with com plaints of a headache with associated vomiting. Patient states her vomiting and headache began this morning. Patient denies any relief of her nausea with the vomiting. Patient denies any abdominal pain or dizziness. This 88-year-old female patient who is on Percocet 5 mg tablets 3 times daily f or chronic back pain. She reports onset about 8:00 this morning of nausea vomiting up to 9 times. She also has a frontal headache. She is a little vague about which came first. The headache is not very severe. She states she did take some Tylenol for her headache. She does report she took her last Percocet about 1:00 this morning. There is no abdominal pain with this. There is no chest pain. There is no shortness of breath. There is no diarrhea. TRAVEL OUTSIDE OF THE [place] IN LAST 30 DAYS: No - Related Data Allergies/Adverse Reactions: No Known Allergies Allergy (Verified 03/13/18 11:58) Past Medical History - General Information source: Patient - Social History Smoking Status: Former Smoker Cigarette use (# per day): No Frequency of alcohol use: None Drug Abuse: None Lives with: Family Family History: Reviewed & Not Pertinent - Past Medical History Cardiac Medical History: Reports: Hx Coronary Artery Disease, Hx Hypercholesterolemia, Hx Hypertension GI Medical History: Reports: Hx Gastroesophageal Reflux Disease Musculoskeletal Medical History: Reports Hx Arthritis Psychiatric Medical History: Reports: Hx Depression Past Surgical History: Reports: Hx Section - x2 Review of Systems - Review of Systems Constitutional: No symptoms reported EENT: No symptoms reported Cardiovascular: denies: Dizziness Respiratory: No symptoms reported Gastrointestinal: See HPI, Vomiting. denies: Abdominal pain Genitourinary: No symptoms reported Female Genitourinary: No symptoms reported Musculoskeletal: No symptoms reported Skin: No symptoms reported Hematologic/Lymphatic: No symptoms reported Neurological/Psychological: See HPI, Headaches -: Yes All other systems reviewed and negative Physical Exam - Vital signs Vitals: Resp Pulse Ox 23 H 96 05/25/18 14:03 05/25/18 14:03 - Notes Notes: Physical Exam: General: Alert, somewhat cachectic appearing. HEENT: Normocephalic. Atraumatic. PERRL. Extraocular movements intact. Oropharynx clear. Neck: Supple. Non-tender. Respiratory: No respiratory distress. Clear and equal breath sounds bilaterally. Cardiovascular: Regular rate and rhythm. Abdominal: Normal Inspection. Non-tender. No distension. Normal Bowel Sounds. Back: Non-tender. No deformity or step off. Extremities: Moves all four extremities. Upper extremities: Normal inspection. Normal ROM. Lower extremities: Normal inspection. No edema. Normal ROM. Neurological: Normal cognition. AAOx4. Normal speech. Psychological: Normal affect. Normal Mood. Skin: Warm. Dry. Normal color. Course - Re-evaluation Re-evalutation: 05/25/18 16:34 After IV fluids and Zofran, the patient is sipping fluids. She states there is a little nauseousness. He states that she still has her frontal headache and would like some pain medication for this. 05/25/18 20:28 The patient had initially told me that the morphine she was given really did not make much difference with her headache. Later she was napping and I woke her up. At that time she does admit that she gets regular headaches just like the one she was having today and there was nothing new or different about it. Further she noted that when high flexed her neck trying to put her chin on her chest, it made the headache feel better. Her blood pressure is quite high, she has not taken her blood pressure medicine today. She was given 10 mg of hydralazine IV and her 40 mg of lisinopril p.o. Her blood pressure has been coming down incrementally, and it is now at 138/59. The patient is sleeping at this time. - Vital Signs Vital signs: Temp Pulse Resp BP Pulse Ox 97.7 F 20 143/64 H 95 05/25/18 14:38 05/25/18 20:42 05/25/18 20:42 05/25/18 20:42 - Laboratory Result Diagrams: 05/25/18 14:09 05/25/18 14:09 Laboratory results interpreted by me: 05/25/18 05/25/18 05/25/18 14:09 14:09 14:30 RDW 17.1 H Seg Neutrophils % 83.5 H Monocytes % 2.8 L Sodium 134.6 L Potassium 3.4 L Chloride 96 L Creatinine 0.40 L Glucose 139 H Total Protein 8.6 H Urine Protein 100 H Urine Glucose (UA) 50 H Urine Ketones 20 H Urine Blood SMALL H - Diagnostic Test Radiology reviewed: Image reviewed, Reports reviewed - CT scan of the head shows mild chronic microvascular ischemic changes without acute findings. CXR shows stable findings, no acute changes. Discharge - Discharge Clinical Impression: Frontal headache Nausea and vomiting Qualifiers: Vomiting type: unspecified Vomiting Intractability: non-intractable Qualified Code(s): R11.2 - Nausea with vomiting, unspecified High blood pressure Qualifiers: Hypertension type: essential hypertension Qualified Code(s): I10 - Essential (primary) hypertension Condition: Stable Disposition: HOME, SELF-CARE Additional Instructions: Nausea or Vomiting, Nonspecific Vomiting (or nausea without vomiting) can be caused by many different problems. Of course, it can mean that something's wrong with the stomach, such as "stomach flu," ulcers, or inflammation. But it can also be a symptom of a problem that has nothing to do with the stomach or intestines. Vomiting is common with severe headaches, earaches, and tonsillitis. We see it with pneumonia or heart attacks. Drugs can cause nausea. Many abdominal problems cause vomiting; for example, gallstones, kidney stones, pancreatitis, and intestinal obstruction (blocked bowels). In most cases, curing the vomiting depends on fixing the problem that caused it. For temporary relief, we may use an anti-nausea medicine. For home use, we can prescribe suppositories, chewable pills, pills that dissolve in the mouth, or liquid anti-nausea drugs. If the vomiting seems to be caused by a problem in the stomach, acid-suppressing drugs may be prescribed as well. It's important to avoid dehydration. Sip clear liquids. Take increasing amounts of fluid over the first 24 hours. Then start small amounts of bland foods (such as dry toast, applesauce, mashed potato). Avoid aspirin, tobacco, and alcohol. Gradually resume your usual diet. If the vomiting worsens, if the problem that's making you vomit worsens, or if there's evidence of bleeding in the stomach (such as black, tarry stool, bloody or black vomit, or lightheadedness), you should return immediately. Call your doctor if you aren't improved in 24 to 36 hours. Take the Zofran as dispensed for nausea if needed this evening. Follow-up with Dr. Duckworth tomorrow if you continue to feel nauseous. RETURN TO THE EMERGENCY ROOM IF ANY NEW OR WORSENING SYMPTOMS. Referrals: PALLAVI DUCKWORTH MD [Primary Care Provider] - Follow up as needed Scribe Attestation: 05/25/18 20:47 I personally performed the services described in the documentation, reviewed and edited the documentation which was dictated to the scribe in my presence, and it accurately records my words and actions. I personally performed the services described in the documentation, reviewed and edited the documentation which was dictated to the scribe in my presence, and it accurately records my words and actions.
--- NOTE | 2018-05-25 19:51 | EKG REPORT ---
SEVERITY:- ABNORMAL ECG - SINUS RHYTHM VENTRICULAR PREMATURE COMPLEX PROBABLE LVH WITH SECONDARY REPOL ABNRM : Confirmed by: Paz Quiñonez MD 25-May-2018 19:50:08
[2018-05-25] MEDS ORDERED: ONDANSETRON ODT 4 MG TAB (6 TAB/ER DISP) PO PRN (20:47)
[2018-05-25 21:10] VITALS: BP 134/62
== END 2018-05-25 21:35 | disposition home or self-care (01) ==
LOC: ER 13:44
DX: R11.2 Nausea with vomiting, unspecified (principal); R51 Headache; I10 Essential (primary) hypertension; I25.10 Atherosclerotic heart disease of native coronary artery without angina pectoris; M54.9 Dorsalgia, unspecified; G89.29 Other chronic pain; Z79.891 Long term (current) use of opiate analgesic; Z87.891 Personal history of nicotine dependence; Z79.899 Other long term (current) drug therapy
CPT/HCPCS: 93005; 99285; 96374; 96375; 36415; 82553; 82550; 85025; 80053; 81001; 84484; 71045; 70450; 93010; J0360; J2270; J2405; A9270 ×2

== ENCOUNTER → 2019-02-10 | Outpatient (CLI) | payer MEDICARE, BC, OTHER ==
[2019-02-10 12:25] LABS: ABSOLUTE BASOPHILS # (AUTO) 0.1 10^3/uL (0.0-0.2); ABSOLUTE EOSINOPHILS # (AUTO) 0.5 10^3/uL (0.0-0.6); ABSOLUTE LYMPHOCYTES (AUTO) 1.3 10^3/uL (0.5-4.7); ABSOLUTE MONOCYTES (AUTO) 0.4 10^3/uL (0.1-1.4); ABSOLUTE NEUT (AUTO) 3.4 10^3/uL (1.7-8.2); BASOPHILS % (AUTO) 1.1 % (0-2); EOSINOPHILS % (AUTO) 9.3 % (0-6); HEMATOCRIT 39.9 % (36.0-47.0); HEMOGLOBIN 13.4 g/dL (12.0-15.5); LYMPHOCYTES % (AUTO) 23.2 % (13-45); MEAN CORPUSCULAR HEMOGLOBIN 29.4 pg (27.0-33.4); MEAN CORPUSCULAR HGB CONC 33.6 g/dL (32.0-36.0); MEAN CORPUSCULAR VOLUME 88 fl (80-97); MONOCYTES % (AUTO) 7.4 % (3-13); PLATELET COUNT 222 10^3/uL (150-450); RED BLOOD COUNT 4.55 10^6/uL (3.72-5.28); RED CELL DISTRIBUTION WIDTH 14.8 % (11.5-14.0); TOTAL CELLS COUNTED % (AUTO) 100 %; WHITE BLOOD COUNT 5.7 10^3/uL (4.0-10.5)
[2019-02-10 12:48] LABS: ALBUMIN 4.2 g/dL (3.5-5.0); ALKALINE PHOSPHATASE 67 U/L (38-126); ANION GAP 11 (5-19); ASPARTATE AMINO TRANSFERASE 30 U/L (14-36); BILIRUBIN,DIRECT 0.2 mg/dL (0.0-0.4); BILIRUBIN,TOTAL 0.7 mg/dL (0.2-1.3); BLOOD UREA NITROGEN 14 mg/dL (7-20); CALCIUM 9.2 mg/dL (8.4-10.2); CARBON DIOXIDE 29 mmol/L (22-30); CHLORIDE 101 mmol/L (98-107); GLUCOSE 94 mg/dL (75-110); TOTAL PROTEIN 7.5 g/dL (6.3-8.2)
== END ==
LOC: DACC 11:42
PROVIDERS: ATTEND Physician Assistant Medical
DX: L29.8 Other pruritus (principal); L85.3 Xerosis cutis
CPT/HCPCS: 36415; 80048; 80076; 85025

== ENCOUNTER 2019-04-21 12:16 | Emergency (ER) | payer MEDICARE, BC, OTHER ==
[2019-04-21] MEDS ORDERED: ACETAMINOPHEN 325 MG TABLET PO ONE (13:09)
--- NOTE | 2019-04-21 13:24 | RADIOLOGY REPORT (SQ) ---
EXAM DESCRIPTION: CT HEAD WITHOUT COMPLETED DATE/TIME: 04/21/2019 1:14 pm REASON FOR STUDY: fall; blood thinner COMPARISON: None. TECHNIQUE: Axial images acquired through the brain without intravenous contrast. Images reviewed wi th bone, brain and subdural windows. Additional sagittal and coronal reconstructions were generated. Images stored on PACS. All CT scanners at this facility use dose modulation, iterative reconstruction, and/or weight based d osing when appropriate to reduce radiation dose to as low as reasonably achievable (ALARA). [facility]: Dose Right [facility]: CareDose [facility]: Dose Right [facility]: Teradose 4D [facility]: [employer] RADIATION DOSE: CT Rad equipment meets quality standard of care and radiation dose reduction techniq ues were employed. CTDIvol: 53.2 mGy. DLP: 937 mGy-cm. mGy. LIMITATIONS: None. FINDINGS: VENTRICLES: Prominent. CEREBRUM: No masses. No hemorrhage. No midline shift. Areas of low density in the white matter mos t likely due to chronic micro-vascular ischemic change. No evidence for acute infarction. CEREBELLUM: No masses. No hemorrhage. No alteration of density. No evidence for acute infarction. EXTRAAXIAL SPACES: Mild age-related involutional change. No fluid collections. No masses. ORBITS AND GLOBE: No intra- or extraconal masses. Normal contour of globe without masses. CALVARIUM: No fracture. PARANASAL SINUSES: No fluid or mucosal thickening. SOFT TISSUES: Left parietal scalp hematoma. OTHER: No other significant finding. IMPRESSION: Scalp hematoma. No acute findings in the brain. EVIDENCE OF ACUTE STROKE: NO. TECHNICAL DOCUMENTATION: JOB ID: [id number] Quality ID # [id number]: Final reports with documentation of one or more dose reduction techniques (e.g., Au tomated exposure control, adjustment of the mA and/or kV according to patient size, use of iterative reconstruction technique) 2010 [employer]- All Rights Reserved Reading location - IP/workstation name: [email or web address]
--- NOTE | 2019-04-21 13:25 | RADIOLOGY REPORT (SQ) ---
EXAM DESCRIPTION: CT CERVICAL SPINE WITHOUT COMPLETED DATE/TIME: 04/21/2019 1:14 pm REASON FOR STUDY: fall; blood thinner COMPARISON: None. TECHNIQUE: Axial images acquired through the cervical spine without intravenous contrast. Images re viewed with lung, soft tissue and bone windows. Reconstructed coronal and sagittal MPR images review ed. Images stored on PACS. All CT scanners at this facility use dose modulation, iterative reconstruction, and/or weight based d osing when appropriate to reduce radiation dose to as low as reasonably achievable (ALARA). [facility]: Dose Right [facility]: CareDose [facility]: Dose Right [facility]: Teradose 4D [facility]: [employer] RADIATION DOSE: CT Rad equipment meets quality standard of care and radiation dose reduction techniq ues were employed. CTDIvol: 8.5 mGy. DLP: 174 mGy-cm. mGy. LIMITATIONS: None. FINDINGS: ALIGNMENT: Grade 1 spondylolisthesis C2- 3, C4- 5. MINERALIZATION: Normal. VERTEBRAL BODIES: No fractures or dislocation. DISCS: No significant disc disease. FACETS, LATERAL MASSES, POSTERIOR ELEMENTS: No fractures. No dislocation. No acute findings. HARDWARE: None in the spine. VISUALIZED RIBS: No fractures. LUNG APICES AND SOFT TISSUES: No significant or acute findings. OTHER: No other significant finding. IMPRESSION: NO ACUTE OR SIGNIFICANT FINDINGS IN THE CERVICAL SPINE. TECHNICAL DOCUMENTATION: JOB ID: [id number] Quality ID # [id number]: Final reports with documentation of one or more dose reduction techniques (e.g., Au tomated exposure control, adjustment of the mA and/or kV according to patient size, use of iterative reconstruction technique) 2010 [employer]- All Rights Reserved Reading location - IP/workstation name: [email or web address]
--- NOTE | 2019-04-21 13:53 | ER Document Report ---
ED General - General Chief Complaint: Closed Head Injury Stated Complaint: FALL Primary Care Provider: PALLAVI DUCKWORTH MD [Primary Care Provider] - Follow up as needed Mode of Arrival: Medic Information source: Patient, Emergency Med Personnel Notes: Patient is an 89-year-old female presenting to the emergency department chief complaint of headache and head pain. Patient states that she fell 2 days ago injuring the left posterior aspect of her skull. Today she had a couple episodes of nausea and vomiting and is here for evaluation and treatment. Patient denies loss of consciousness denies chest pain palpitations shortness of breath prior to the event. TRAVEL OUTSIDE OF THE [place] IN LAST 30 DAYS: No - HPI Onset: Yesterday Onset/Duration: Sudden Quality of pain: Throbbing Severity: Moderate Pain Level: 2 Associated symptoms: Nausea, Vomiting Exacerbated by: Denies Relieved by: Denies Similar symptoms previously: No Recently seen / treated by doctor: No - Related Data Allergies/Adverse Reactions: No Known Allergies Allergy (Verified 04/21/19 12:45) Home Medications: asa 81 mg, metroprolol Past Medical History - General Information source: Patient - Social History Smoking Status: Never Smoker Chew tobacco use (# tins/day): No Frequency of alcohol use: None Drug Abuse: None Lives with: Spouse/Significant other Family History: Reviewed & Not Pertinent Patient has suicidal ideation: No Patient has homicidal ideation: No - Past Medical History Cardiac Medical History: Reports: Hx Coronary Artery Disease, Hx Hypercholesterolemia, Hx Hypertension Denies: Hx Atrial Fibrillation, Hx Congestive Heart Failure, Hx Heart Attack - has stent placed, Hx Peripheral Vascular Disease, Hx Heart Murmur Pulmonary Medical History: Denies: Hx Asthma, Hx Bronchitis, Hx COPD, Hx Pneumonia, Hx Sleep Apnea Neurological Medical History: Denies: Hx Cerebrovascular Accident, Hx Seizures Endocrine Medical History: Denies: Hx Hyperthyroidism, Hx Hypothyroidism Renal/ Medical History: Denies: Hx Kidney Stones, Hx Peritoneal Dialysis GI Medical History: Reports: Hx Gastroesophageal Reflux Disease. Denies: Hx Crohn's Disease, Hx Hiatal Hernia, Hx Irritable Bowel, Hx Liver Failure, Hx Pancreatitis, Hx Ulcer Musculoskeletal Medical History: Reports Hx Arthritis, Denies Hx Fibromyalgia, Denies Hx Muscular Dystrophy Psychiatric Medical History: Reports: Hx Depression Denies: Hx Bipolar Disorder, Hx Post Traumatic Stress Disorder, Hx Schizophrenia Traumatic Medical History: Denies: Hx Fractures Past Surgical History: Reports: Hx Section - x2. Denies: Hx Appendectomy, Hx Bowel Surgery, Hx Cholecystectomy, Hx Colostomy, Hx Coronary Artery Bypass Graft, Hx Gastric Bypass Surgery, Hx Herniorrhaphy, Hx Hysterectomy, Hx Mastectomy, Hx Pacemaker, Hx Tonsillectomy, Hx Tubal Ligation Review of Systems - Review of Systems Notes: REVIEW OF SYSTEMS: CONSTITUTIONAL : Denies fever, chills, or sweats. Denies recent illness. EENT: Denies eye, ear, throat, or mouth pain or symptoms. Denies nasal or sinus congestion. CARDIOVASCULAR: Denies chest pain. RESPIRATORY: Denies cough, cold, or chest congestion. Denies shortness of breath, difficulty breathing, or wheezing. GASTROINTESTINAL: Denies abdominal pain. Denies diarrhea. Denies constipation. GENITOURINARY: Denies difficulty urinating, painful urination, burning, frequency, or blood in urine. MUSCULOSKELETAL: Denies neck or back pain or joint pain or swelling. SKIN: Denies rash or skin lesions. HEMATOLOGIC : Denies easy bruising or bleeding. NEUROLOGICAL: Denies altered mental status or loss of consciousness. Denies weakness or paralysis or loss of use of either side. Denies problems with gait or speech. Denies sensory or motor loss. PSYCHIATRIC: Denies suicidal or homicidal ideations 10 Systems are negative unless otherwise specified above Physical Exam - Vital signs Vitals: Temp Pulse BP Pulse Ox 97.5 F 80 149/78 H 100 04/21/19 12:26 04/21/19 12:26 04/21/19 12:26 04/21/19 12:26 - Notes Notes: PHYSICAL EXAMINATION: GENERAL: Well-appearing, well-nourished and in no acute distress. HEAD: Patient has an area to the posterior left parietal region which does demonstrate ecchymosis it is approximately 2 cm in diameter tender to palpation otherwise there is no signs of trauma EYES: Pupils equal round and reactive to light, extraocular movements intact, sclera anicteric, conjunctiva are normal. ENT: nares patent, oropharynx clear without exudates. Moist mucous membranes. NECK: Normal range of motion, supple without lymphadenopathy, no appreciable JVD LUNGS: Lungs clear to auscultation bilaterally and equal. No wheezes rales or rhonchi. HEART: Regular rate and rhythm without murmurs ABDOMEN: Soft, nontender, normal bowel sounds. No guarding, no rebound. No masses appreciated. EXTREMITIES: Active full range of motion, no pitting or edema. No cyanosis. 2+ pulses x4 NEUROLOGICAL: At time of evaluation the patient is alert and oriented x3, Glascow coma scale of 15, cranial nerves II through XII are grossly intact, sensations intact, motor is intact, there are no signs of nystagmus, there is no pronator drift, there is no facial asymmetry, tongue protrusion is midline, reflexes are equal and bilateral, patient ambulates without ataxia, patient answers all questions appropriately follows commands appropriately. SKIN: Warm, Dry, and intact. Normal turgor, no rashes or lesions noted. Course - Re-evaluation Re-evalutation: 04/21/19 19:19 Patient has been reevaluated several times while in emergency department patient has remained stable without any signs of decompensation. I did discuss the laboratory and radiologic results with the patient she is agreeable with discharge home. - Vital Signs Vital signs: Temp Pulse Resp BP Pulse Ox 97.3 F 72 16 173/83 H 100 04/21/19 17:00 04/21/19 17:00 04/21/19 17:00 04/21/19 17:00 04/21/19 17:00 - Laboratory Laboratory results interpreted by me: 04/21/19 14:30 Urine Protein 100 H Urine Ketones 20 H Urine Blood MODERATE H Urine Ascorbic Acid 20 H - Diagnostic Test Radiology reviewed: Reports reviewed Discharge - Discharge Clinical Impression: Accidental fall Qualifiers: Encounter type: initial encounter Qualified Code(s): W19.XXXA - Unspecified fall, initial encounter Head contusion Qualifiers: Encounter type: initial encounter Contusion of head detail: scalp Qualified Code(s): S00.03XA - Contusion of scalp, initial encounter Condition: Stable Disposition: HOME, SELF-CARE Additional Instructions: Contusion Your injury has resulted in a contusion -- a crushing of the deep tissues. No injury to important structures was detected during the physician's exam. Contusions vary in the amount of pain they cause, and in the length of time required for healing. Typically, the area will become bruised, and will remain painful to touch for two or three weeks. However, most patients are back to working and playing within a few days. After the initial period of rest and cold-packs, your symptoms (together with the doctor's recommendations) will determine how rapidly you can get back to full activity. Usually this means "do what feels okay, but don't do things that hurt." If re-examination was recommended, it's important to follow up as instructed. Call the doctor or return any time if pain increases, if swelling becomes severe, if you develop numbness or weakness in an injured extremity, or if any other alarming symptoms occur. Referrals: PALLAVI DUCKWORTH MD [Primary Care Provider] - Follow up as needed
[2019-04-21 15:27] LABS: APPEARANCE,URINE SLIGHTLY-CLOUDY; BILIRUBIN,URINE NEGATIVE (NEGATIVE); COLOR,URINE YELLOW; GLUCOSE, URINE NEGATIVE (NEGATIVE); KETONES,URINE 20 mg/dL (NEGATIVE); LEUKOCYTE ESTERASE,URINE NEGATIVE (NEGATIVE); NITRITE,URINE NEGATIVE (NEGATIVE); PROTEIN,URINE 100 mg/dL (NEGATIVE); URINE SPECIFIC GRAVITY 1.017; UROBILINOGEN,URINE NEGATIVE mg/dL (<2.0)
[2019-04-21 15:29] LABS: ADD MANUAL MICROSCOPIC YES
[2019-04-21 15:31] LABS: AMORPHOUS SEDIMENT,UR TRACE; BACTERIA,URINE TRACE /HPF
[2019-04-21 16:57] VITALS: BP 173/83
== END 2019-04-21 17:00 | disposition home or self-care (01) ==
LOC: ER 12:16
DX: S00.03XA Contusion of scalp, initial encounter (principal); R51 Headache; W19.XXXA Unspecified fall, initial encounter; R11.2 Nausea with vomiting, unspecified; I25.10 Atherosclerotic heart disease of native coronary artery without angina pectoris; I10 Essential (primary) hypertension; Z79.899 Other long term (current) drug therapy; Z79.82 Long term (current) use of aspirin
CPT/HCPCS: 99284; 81001; 70450; 72125; A9270